=== PATIENT | female | born 1985 | race Caucasian/White ===

== ENCOUNTER 2016-10-31 21:21 | Emergency (ER) | payer BC, MEDICAID ==
[~2016-10-31] VITALS: Ht 162.6 cm; Wt 75.0 kg
[~2016-10-31 21:21] MED LIST: ALBU6.7H INH; BUSP15TA PO; GABA600T PO; LITH300T3 PO; PRED50 PO; ZOLO100T PO
[2016-10-31 21:42] VITALS: BP 94/60; PULSE 55; RESP 18; TEMP 97.7; O2SAT 99
--- NOTE | 2016-10-31 22:03 | PD ---
HPI . needs gabapentin refill Chief Complaint: needs gabapentin refill Time Seen by Provider: 21:58 Travel History International Travel<30 days: No Contact w/Intl Traveler<30days: No Traveled to known affect area: No History of Present Illness HPI 31-year-old female with a psychiatric history here with request for gabapentin refill. Patient was out of town and didn't realize that she Mr. Aristides Serrano appointment. Now she is requesting refill on gabapentin. She has no complaints. She tells me she is going to try to go back later on this week. PFSH Past Medical History Hx Anticoagulant Therapy: No ADHD: Yes Arthritis: No Asthma: Yes Bipolar Disorder: Yes Anxiety: Yes Depression: Yes Cancer: No Cardiovascular Problems: No Chemotherapy: No Cerebrovascular Accident: No Diabetes: No Diminished Hearing: No Endocrine: No GERD: Yes Genitourinary: No Hepatitis: Yes (HEP C) Immune Disorder: No Musculoskeletal: No Neurologic: Yes (MIGRAINE HEADHACHE) Psychiatric: Yes (BIPOLAR D/O) Reproductive: No Respiratory: Yes (ASTHMA) Migraines: Yes Pneumonia: Yes (HX OF) Seizures: Yes Sleep Apnea: No : 4 Para: 1 Miscarriage: 1 : 2 Ovarian Cysts: Yes (STATES LEFT OVARIAN CYST RUPTURED) Dilation and Curettage (D&C): Yes Past Surgical History Abdominal Surgery: No Cardiac Surgery: No Ear Surgery: No Endocrine Surgery: No Eye Surgery: No Genitourinary Surgery: No Gynecologic Surgery: Yes Hysterectomy: No Oral Surgery: No Thoracic Surgery: No Family History Family Hypercholesterolemia: Yes Social History Alcohol Use: No Tobacco Use: Yes (10 cigarettes/day) Substance Use: No Allergies-Medications (Allergen,Severity, Reaction): Coded Allergies: No Known Allergies (Verified , 10/31/16) Reported Meds & Prescriptions Reported Meds & Active Scripts Active Gabapentin 300 Mg Cap 300 Mg PO TID Gabapentin 600 Mg Tab 600 Mg PO BID Proventil Hfa 6.7 GM Inh (Albuterol Sulfate) 90 Mcg/Act Aer 2 Puff INH Q4-6H PRN Reported Suboxone Sublingual Film (Buprenorphine-Naloxone Sublingual Film) 8-2 Mg Film 1 Film SL BID Unique ID number required: Zoloft (Sertraline HCl) 100 Mg Tab 100 Mg PO DAILY Buspirone (Buspirone HCl) 15 Mg Tab 15 Mg PO TID Gabapentin 600 Mg Tab 900 Mg PO HS [place] Carbonate 300 Mg Tab 600 Mg PO HS Review of Systems General / Constitutional: No: Fever Eyes: No: Visual changes HENT: No: Headaches Cardiovascular: No: Chest Pain or Discomfort Respiratory: No: Shortness of Breath Gastrointestinal: No: Abdominal Pain Genitourinary: No: Dysuria Musculoskeletal: No: Pain Skin: No Rash Neurologic: No: Weakness Psychiatric: No: Depression Endocrine: No: Polydipsia Hematologic/Lymphatic: No: Easy Bruising Physical Exam Narrative GENERAL: AAO x 3, no acute distress, Well-nourished, well-developed patient. SKIN: Warm and dry. No visible rashes or bruising. HEAD: Normocephalic and atraumatic. EYES: No scleral icterus. No injection or drainage. ENT: No nasal drainage noted. Airway patent. NECK: Supple, trachea midline. No JVD. CARDIOVASCULAR: Regular rate and rhythm without murmurs, gallops, or rubs. RESPIRATORY: Breath sounds equal bilaterally. No accessory muscle use. No rhonchi or rales. GASTROINTESTINAL: Abdomen soft, non-tender, nondistended. EXTREMITIES: No cyanosis or edema. BACK: Nontender without obvious deformity. No CVA tenderness. PSYCH: AAO x 3, normal affect. Data Data Last Documented VS Vital Signs Date Time Temp Pulse Resp B/P Pulse Ox O2 Delivery O2 Flow Rate FiO2 10/31/16 21:42 97.7 55 18 94/60 99 MDM Medical Decision Making Medical Screen Exam Complete: Yes Emergency Medical Condition: Yes Medical Record Reviewed: Yes Differential Diagnosis medication refill, bipolar disorder Narrative Course 31-year-old female with a psychiatric history here with request for gabapentin refill. Patient was out of town and didn't realize that she MrStacia Serrano appointment. Now she is requesting refill on gabapentin. She has no complaints. She tells me she is going to try to go back later on this week. Patient seen and examined. Exam is unremarkable. Refill for gabapentin will be given for 10 day supply. Will need to follow up with Aristides Serrano for further refills. Patient verbalized understanding of instructions, questions were answered, and thanked me for their care. I advised them if their condition worsens, please return to the nearest emergency room for further care. Diagnosis Primary Impression: Medication refill Additional Instructions: Please return to emergency department if your symptoms return or worsen. Follow up with your primary care provider. Take medications as prescribed. Scripts Gabapentin 300 Mg [id number] Mg PO TID #30 CAP Ref 0 Prov:Mando Chery MD 10/31/16 Disposition: 01 DISCHARGE HOME Condition: Stable Esther Bailey Oct 31, 2016 22:03
[2016-10-31] MEDS ORDERED: SUBO8MIS SL (22:05)
[2016-10-31] MEDS ORDERED: GABA300C5 PO (22:09)
== END 2016-10-31 22:15 | disposition home or self-care (01) ==
LOC: PHEFT 21:21
DX: F31.9 Bipolar disorder, unspecified (principal); F17.210 Nicotine dependence, cigarettes, uncomplicated; Z76.0 Encounter for issue of repeat prescription
CPT/HCPCS: 99281

== ENCOUNTER 2016-11-07 20:45 | Emergency (ER) | payer BC ==
[~2016-11-07 20:45] MED LIST changes: +GABA300C5 PO; -PRED50 PO; +SUBO8MIS SL
[2016-11-07 20:47] VITALS: BP 132/61; PULSE 62; RESP 16; TEMP 98.4; O2SAT 99
[2016-11-08] MEDS ORDERED: GABA300C5 PO (18:39)
== END 2016-11-07 23:34 | disposition left against medical advice (07) ==
LOC: NED 20:45
DX: Z76.89 Persons encountering health services in other specified circumstances (principal)
CPT/HCPCS: 99281

== ENCOUNTER 2016-11-08 16:48 | Emergency (ER) | payer BC ==
[~2016-11-08] VITALS: Ht 162.6 cm; Wt 76.3 kg
[2016-11-08 16:50] VITALS: BP 122/71; PULSE 63; RESP 16; TEMP 98.4; O2SAT 97
--- NOTE | 2016-11-08 18:38 | PD ---
HPI Chief Complaint: Medication Refill Request Time Seen by Provider: 18:35 Travel History International Travel<30 days: No Contact w/Intl Traveler<30days: No Traveled to known affect area: No History of Present Illness HPI 31-year-old female with PMH of bipolar, anxiety and depression presents to the ED for medication refill. The patient states that she missed her appointment at [facility] and has been going every morning in an attempt to have her medications refilled but has been unsuccessful. She states that she does not have insurance or primary care provider. She states that she was given a short- term supply by her last provider that she saw in this ED. Review of the record reveals she was seen in this ED 10/31 and prescribed 10 days worth of gabapentin. She states that she takes this medication to treat bipolar. She states that without the medication she feels "like crap." She denies physical complaints on presentation. PFSH Past Medical History Hx Anticoagulant Therapy: No ADHD: Yes Arthritis: No Asthma: Yes Bipolar Disorder: Yes Anxiety: Yes Depression: Yes Cancer: No Cardiovascular Problems: No Chemotherapy: No Cerebrovascular Accident: No Diabetes: No Diminished Hearing: No Endocrine: No GERD: Yes Genitourinary: No Hepatitis: Yes (C) Immune Disorder: No Musculoskeletal: No Neurologic: Yes (Migraines ) Psychiatric: Yes (BIPOLAR D/O) Reproductive: No Respiratory: Yes (ASTHMA) Migraines: Yes Pneumonia: Yes Seizures: Yes Sleep Apnea: No ?: Not : 4 Para: 1 Miscarriage: 1 : 2 Ovarian Cysts: Yes (Lt. ovarian cyst ruptured ) Dilation and Curettage (D&C): Yes Past Surgical History Abdominal Surgery: No Cardiac Surgery: No Ear Surgery: No Endocrine Surgery: No Eye Surgery: No Genitourinary Surgery: No Gynecologic Surgery: Yes Hysterectomy: No Oral Surgery: No Thoracic Surgery: No Family History Family Hypercholesterolemia: Yes Social History Alcohol Use: No Tobacco Use: Yes (1/2 PPD) Substance Use: Yes (Marijuana occ.) Allergies-Medications (Allergen,Severity, Reaction): Coded Allergies: No Known Allergies (Verified , 11/08/16) Reported Meds & Prescriptions Reported Meds & Active Scripts Active Gabapentin 300 Mg Cap 300 Mg PO TID Gabapentin 300 Mg Cap 300 Mg PO TID Gabapentin 600 Mg Tab 600 Mg PO BID Proventil Hfa 6.7 GM Inh (Albuterol Sulfate) 90 Mcg/Act Aer 2 Puff INH Q4-6H PRN Reported Suboxone Sublingual Film (Buprenorphine-Naloxone Sublingual Film) 8-2 Mg Film 1 Film SL BID Unique ID number required: Zoloft (Sertraline HCl) 100 Mg Tab 100 Mg PO DAILY Buspirone (Buspirone HCl) 15 Mg Tab 15 Mg PO TID Gabapentin 600 Mg Tab 900 Mg PO HS [place] Carbonate 300 Mg Tab 600 Mg PO HS Review of Systems Except as stated in HPI: all other systems reviewed are Neg Physical Exam Narrative GENERAL: Well-nourished, well-developed tearful white female in no acute distress. SKIN: Focused skin assessment warm/dry. HEAD: Normocephalic. EYES: No scleral icterus. No injection or drainage. NECK: Supple, trachea midline. No JVD or lymphadenopathy. CARDIOVASCULAR: Regular rate and rhythm without murmurs, gallops, or rubs. RESPIRATORY: Breath sounds equal bilaterally. No accessory muscle use. GASTROINTESTINAL: Abdomen round, nondistended. MUSCULOSKELETAL: No cyanosis, or edema. The patient is ambulatory and moves extremities spontaneously. BACK: No obvious deformity. Data Data Last Documented VS Vital Signs Date Time Temp Pulse Resp B/P Pulse Ox O2 Delivery O2 Flow Rate FiO2 11/08/16 16:50 98.4 63 16 122/71 97 MDM Medical Decision Making Medical Screen Exam Complete: Yes Emergency Medical Condition: Yes Differential Diagnosis medication refill versus bipolar disorder versus malingering versus other Narrative Course 31-year-old female with PMH of bipolar, anxiety and depression presents to the ED for medication refill. The patient states that she missed her appointment at [facility] and has been going every morning in an attempt to have her medications refilled but has been unsuccessful. She states that she does not have insurance or primary care provider. She states that she was given a short- term supply by her last provider that she saw in this ED. Review of the record reveals she was seen in this ED 10/31 and prescribed 10 days worth of gabapentin. She states that she takes this medication to treat bipolar. She states that without the medication she feels "like crap." She denies physical complaints on presentation. Vitals reviewed. Physical exam is unremarkable. I had registration verified the patient does indeed have insurance. I notified the patient that she does have insurance and should establish a primary care to avoid further abuse of the ED. I provided her with #60 300 mg gabapentin. I informed her that medication I prescribed at the discretion of the provider and she may not be able to acquire refills from the emergency department in the future. She indicated understanding of her discharge instructions and is agreeable to plan of care. The patient is stable and discharged home. Diagnosis Primary Impression: Medication refill Referrals: Primary Care Physician [facility] Additional Instructions: Take medication as prescribed. Establish care with a PCP to avoid further abuse of the ED. Follow up with Aristides Cox. Turn to the ED for any urgent or emergent medical condition. Med/Other Pt SpecificInfo: Prescription(s) given Scripts Gabapentin 300 Mg [id number] Mg PO TID #60 CAP Ref 0 Prov:Yong Martinez MD 11/08/16 Disposition: 01 DISCHARGE HOME Condition: Stable Zahira Marshall Nov 08, 2016 18:38
[2016-11-08] MEDS ORDERED: GABA300C5 PO (18:39)
== END 2016-11-08 18:48 | disposition home or self-care (01) ==
LOC: PHEFT 16:48
DX: Z76.0 Encounter for issue of repeat prescription (principal); F31.9 Bipolar disorder, unspecified; F41.9 Anxiety disorder, unspecified; K21.9 Gastro-esophageal reflux disease without esophagitis; F90.9 Attention-deficit hyperactivity disorder, unspecified type; J45.909 Unspecified asthma, uncomplicated
CPT/HCPCS: 99281

== ENCOUNTER 2017-02-20 11:01 | Emergency (ER) | payer BC, OTHER ==
[~2017-02-20] VITALS: Ht 162.6 cm; Wt 68.0 kg
[2017-02-20 11:03] VITALS: BP 125/78; PULSE 77; RESP 15; TEMP 98.2; O2SAT 98
--- NOTE | 2017-02-20 11:38 | PD ---
HPI . here for gabapentin refill Chief Complaint: Medication Refill Request Time Seen by Provider: 11:38 Travel History International Travel<30 days: No Contact w/Intl Traveler<30days: No Traveled to known affect area: No History of Present Illness HPI 31-year-old female here requesting a refill on gabapentin. She tells me that [facility] here as they cannot get her in for the next few days. She is requesting a short supply of gabapentin. She takes 300 mg 2 tablets in the morning and 3 tablets in the evening. She has to empty bottle here with her. She has no specific complaints. PFSH Past Medical History Hx Anticoagulant Therapy: No ADHD: Yes Arthritis: No Asthma: Yes Bipolar Disorder: Yes Anxiety: Yes Depression: Yes Cancer: No Cardiovascular Problems: No Chemotherapy: No Cerebrovascular Accident: No Diabetes: No Diminished Hearing: No Endocrine: No GERD: Yes Genitourinary: No Hepatitis: Yes (C) Immune Disorder: No Musculoskeletal: No Neurologic: Yes (Migraines ) Psychiatric: Yes (BIPOLAR D/O) Reproductive: No Respiratory: Yes (ASTHMA) Migraines: Yes Pneumonia: Yes Seizures: Yes Sleep Apnea: No ?: Unknown LMP: 2 MONTHS AGO : 4 Para: 1 Miscarriage: 1 : 2 Ovarian Cysts: Yes (Lt. ovarian cyst ruptured ) Dilation and Curettage (D&C): Yes Past Surgical History Abdominal Surgery: No Cardiac Surgery: No Ear Surgery: No Endocrine Surgery: No Eye Surgery: No Genitourinary Surgery: No Gynecologic Surgery: Yes Hysterectomy: No Oral Surgery: No Thoracic Surgery: No Family History Family Hypercholesterolemia: Yes Social History Alcohol Use: No Tobacco Use: Yes (1/2 PPD) Substance Use: Yes (Marijuana occ.) Allergies-Medications (Allergen,Severity, Reaction): Coded Allergies: No Known Allergies (Verified , 11/08/16) Reported Meds & Prescriptions Reported Meds & Active Scripts Active Gabapentin 300 Mg Cap 300 Mg PO DIRECTED 2 tablet in am 3 tablet at bedtime Gabapentin 300 Mg Cap 300 Mg PO TID Gabapentin 300 Mg Cap 300 Mg PO TID Gabapentin 600 Mg Tab 600 Mg PO BID Proventil Hfa 6.7 GM Inh (Albuterol Sulfate) 90 Mcg/Act Aer 2 Puff INH Q4-6H PRN Reported Suboxone Sublingual Film (Buprenorphine-Naloxone Sublingual Film) 8-2 Mg Film 1 Film SL BID Unique ID number required: Zoloft (Sertraline HCl) 100 Mg Tab 100 Mg PO DAILY Buspirone (Buspirone HCl) 15 Mg Tab 15 Mg PO TID Gabapentin 600 Mg Tab 900 Mg PO HS [place] Carbonate 300 Mg Tab 600 Mg PO HS Review of Systems General / Constitutional: No: Fever Eyes: No: Visual changes HENT: No: Headaches Cardiovascular: No: Chest Pain or Discomfort Respiratory: No: Shortness of Breath Gastrointestinal: No: Abdominal Pain Genitourinary: No: Dysuria Musculoskeletal: No: Pain Skin: No Rash Neurologic: No: Weakness Psychiatric: No: Depression Endocrine: No: Polydipsia Hematologic/Lymphatic: No: Easy Bruising Physical Exam Narrative GENERAL: AAO x 3, no acute distress, Well-nourished, well-developed patient. SKIN: Warm and dry. No visible rashes or bruising. HEAD: Normocephalic and atraumatic. EYES: No scleral icterus. No injection or drainage. ENT: No nasal drainage noted. Mucous membranes pink. Airway patent. NECK: Supple, trachea midline. No JVD. CARDIOVASCULAR: Regular rate and rhythm without murmurs, gallops, or rubs. RESPIRATORY: Breath sounds equal bilaterally. GASTROINTESTINAL: visual inspection normal EXTREMITIES: No cyanosis or edema. BACK: No obvious deformity. NEURO: CN II-12 intact, PSYCH: AAO x 3, normal affect. Data Data Last Documented VS Vital Signs Date Time Temp Pulse Resp B/P Pulse Ox O2 Delivery O2 Flow Rate FiO2 02/20/17 11:03 98.2 77 15 125/78 98 MDM Medical Decision Making Medical Screen Exam Complete: Yes Emergency Medical Condition: Yes Medical Record Reviewed: Yes Differential Diagnosis medical refills, psychiatric history, bipolar disorder, Narrative Course 31 yr old female here requesting refills. I explained to her that she will need to see her PCP or psych for further refills. She thanked me for the few days worth of medication I provided. Diagnosis Primary Impression: Medication refill Patient Instructions: General Instructions Additional Instructions: You will need to follow up with your primary care provider or psychiatric Center for further refills on this medication. I have provided you with a three-day supply. Med/Other Pt SpecificInfo: Prescription(s) given Scripts Gabapentin 300 Mg [id number] Mg PO DIRECTED #15 CAP Ref 0 2 tablet in am 3 tablet at bedtime Prov:Shravan Saunders MD 02/20/17 Disposition: 01 DISCHARGE HOME Condition: Stable Esther Bailey Feb 20, 2017 11:38
[2017-02-20] MEDS ORDERED: GABA300C5 PO (11:41)
== END 2017-02-20 12:58 | disposition home or self-care (01) ==
LOC: NEPK 11:01
DX: F31.9 Bipolar disorder, unspecified (principal); Z76.0 Encounter for issue of repeat prescription
CPT/HCPCS: 99281

== ENCOUNTER 2017-03-21 23:29 | Emergency (ER) | payer OTHER ==
[~2017-03-21] VITALS: Ht 162.6 cm; Wt 69.0 kg
[2017-03-21 23:36] VITALS: BP 116/61; PULSE 82; RESP 14; TEMP 99.5; O2SAT 98
--- NOTE | 2017-03-21 23:39 | PD ---
HPI Chief Complaint: OD Time Seen by Provider: 23:32 Travel History International Travel<30 days: No Contact w/Intl Traveler<30days: No Traveled to known affect area: No History of Present Illness HPI EMS CALL DUE TO NOT BREATHING WELL, FOUND ON YARD IN FRONT OF BOYFRIENDS HOUSE, WITH PINPOINT PUPILS, SHALLOW RESPIRATIONS AND PULSE OX IN 50'S, GIVEN NARCAN IM , GOT AGITATED, NOW CALMER AND HOLDING HER OWN, BREATHING AND ANSWERING QUESTIONS APPROPRIATELY. PATIENT STATED SHE USED HEROIN TODAY. PFSH Past Medical History Hx Anticoagulant Therapy: No ADHD: Yes Arthritis: No Asthma: Yes Bipolar Disorder: Yes Anxiety: Yes Depression: Yes Cancer: No Cardiovascular Problems: No Chemotherapy: No Cerebrovascular Accident: No Diabetes: No Diminished Hearing: No Endocrine: No GERD: Yes Genitourinary: No Hepatitis: Yes (C) Immune Disorder: No Musculoskeletal: No Neurologic: Yes (Migraines ) Psychiatric: Yes (BIPOLAR D/O) Reproductive: No Respiratory: Yes (ASTHMA) Migraines: Yes Pneumonia: Yes Seizures: Yes Sleep Apnea: No : 4 Para: 1 Miscarriage: 1 : 2 Ovarian Cysts: Yes (Lt. ovarian cyst ruptured ) Dilation and Curettage (D&C): Yes Past Surgical History Abdominal Surgery: No Cardiac Surgery: No Ear Surgery: No Endocrine Surgery: No Eye Surgery: No Genitourinary Surgery: No Gynecologic Surgery: Yes Hysterectomy: No Oral Surgery: No Thoracic Surgery: No Family History Family Hypercholesterolemia: Yes Social History Alcohol Use: No Tobacco Use: Yes (1/2 PPD) Substance Use: Yes (Marijuana occ.) Allergies-Medications (Allergen,Severity, Reaction): Coded Allergies: No Known Allergies (Verified , 03/22/17) Reported Meds & Prescriptions Reported Meds & Active Scripts Active Gabapentin 300 Mg Cap 300 Mg PO DIRECTED 2 tablet in am 3 tablet at bedtime Gabapentin 300 Mg Cap 300 Mg PO TID Gabapentin 300 Mg Cap 300 Mg PO TID Gabapentin 600 Mg Tab 600 Mg PO BID Proventil Hfa 6.7 GM Inh (Albuterol Sulfate) 90 Mcg/Act Aer 2 Puff INH Q4-6H PRN Reported Suboxone Sublingual Film (Buprenorphine-Naloxone Sublingual Film) 8-2 Mg Film 1 Film SL BID Unique ID number required: Zoloft (Sertraline HCl) 100 Mg Tab 100 Mg PO DAILY Buspirone (Buspirone HCl) 15 Mg Tab 15 Mg PO TID Gabapentin 600 Mg Tab 900 Mg PO HS [place] Carbonate 300 Mg Tab 600 Mg PO HS Review of Systems ROS Limitations: Unresponsive Except as stated in HPI: all other systems reviewed are Neg Physical Exam Narrative GENERAL: SKIN: Warm and dry. MULTIPLE TRACK AHUJA THROUGHOUT BODY, NO AREA OF CELLULITIS HEAD: Atraumatic. Normocephalic. EYES: Pupils equal and round. No scleral icterus. No injection or drainage. ENT: No nasal bleeding or discharge. Mucous membranes pink and moist. NECK: Trachea midline. No JVD. CARDIOVASCULAR: Regular rate and rhythm. RESPIRATORY: No accessory muscle use. Clear to auscultation. Breath sounds equal bilaterally. GASTROINTESTINAL: Abdomen soft, non-tender, nondistended. Hepatic and splenic margins not palpable. MUSCULOSKELETAL: Extremities without clubbing, cyanosis, or edema. No obvious deformities. NEUROLOGICAL: Awake and alert. No obvious cranial nerve deficits. Motor grossly within normal limits. Five out of 5 muscle strength in the arms and legs. Normal speech. PSYCHIATRIC: Appropriate mood and affect; insight and judgment normal. Data Data Last Documented VS Vital Signs Date Time Temp Pulse Resp B/P Pulse Ox O2 Delivery O2 Flow Rate FiO2 03/21/17 23:36 99.5 82 14 116/61 98 Orders Electrocardiogram (03/21/17 23:32) Chest, Single Ap (03/21/17 23:32) Orthostatic Vital Signs (03/21/17 23:32) Blood Glucose (03/21/17 23:32) Ed Urine Pregnancytest Poc (03/21/17 23:32) Drug Screen, Random Urine (03/21/17 23:32) [facility] Medical Decision Making Medical Screen Exam Complete: Yes Emergency Medical Condition: Yes Medical Record Reviewed: Yes Interpretation(s) NSR 81, NO STEMI PATTERN BUT NONSPEC STT CHANGES NOTED Differential Diagnosis PREG RELATED V DEHYDRATION V HYPOGLYCEMIA V TOX RELATED Narrative Course EKG WNL, NO HYPOGLYCEMIA, NORMAL ORTHOSTATICS, AND NEG . PATIENT IS ABLE TO AMBULATE ON OWN AND IS EASILY AROUSABLE. AFTER 3 HRS OF OBSERVATION, PT HAS REMAINED STABLE AND WITHOUT ADDITIONAL NEED TO FURTHER ADMINISTER NARCAN. VSS. Diagnosis Primary Impression: OPIATE OVERDOSE S/P NARCAN Patient Instructions: General Instructions, Opioid Overdose (ED) Disposition: 01 DISCHARGE HOME Condition: Stable Juan Paul MD Mar 21, 2017 23:39
--- NOTE | 2017-03-22 00:12 | RADRPT ---
EXAM DATE/TIME: 03/21/2017 23:45 [facility] COMPARISON: No previous studies available for comparison. INDICATIONS : Shortness of breath. MEDICAL HISTORY : None. SURGICAL HISTORY : None. ENCOUNTER: Initial ACUITY: 1 day PAIN SCORE: 0/10 LOCATION: Bilateral chest FINDINGS: A single view of the chest demonstrates the lungs to be symmetrically aerated without evidence of mas s, infiltrate or effusion. No evidence of pneumothorax. The cardiomediastinal contours are unremark able. Osseous structures are intact. CONCLUSION: The lungs are clear. Judd Busch MD on March 22, 2017 at 0:10 Board Certified Radiologist. This report was verified electronically.
[2017-03-22 03:49] VITALS: BP 120/70; PULSE 86; RESP 16; O2SAT 95
--- NOTE | 2017-03-23 08:35 | EKG ---
Date Performed: 03/21/2017 Time Performed: 23:36:29 PTAGE: 31 years EKG: Sinus rhythm NONSPECIFIC T-WAVE ABNORMALITY BORDERLINE ECG NO PREVIOUS TRACING DOCTOR: Arnoldo Martinez Interpretating Date/Time 03/23/2017 08:34:23
== END 2017-03-22 04:04 | disposition home or self-care (01) ==
LOC: NEPC 23:29
DX: T40.1X1A Poisoning by heroin, accidental (unintentional), initial encounter (principal); R06.02 Shortness of breath; Y92.009 Unspecified place in unspecified non-institutional (private) residence as the place of occurrence of the external cause
CPT/HCPCS: 71010; 84703; 93005

== ENCOUNTER 2017-04-01 23:39 | Emergency (ER) | payer OTHER ==
[~2017-04-01] VITALS: Ht 162.6 cm; Wt 70.0 kg
[2017-04-01 23:47] VITALS: BP 169/84; PULSE 93; RESP 16; TEMP 98.5; O2SAT 97
[2017-04-01 23:53] VITALS: O2SAT 98
--- NOTE | 2017-04-01 23:54 | PD ---
HPI Chief Complaint: OD/ Ingestion Time Seen by Provider: 23:49 Travel History International Travel<30 days: No Contact w/Intl Traveler<30days: No Traveled to known affect area: No History of Present Illness HPI 31-year-old female with history of heroin abuse, has been seen by ambulance crew several times recently for opiate overdose, had an opiate overdose today, states she had taken heroin and was found unresponsive with pinpoint pupils, was given Narcan. She is currently awake. She denies any other issues. Modifying Factors: None Associated Signs & Symptoms: Opiate overdose Risk Factors: History of opiate abuse PFSH Past Medical History Hx Anticoagulant Therapy: No ADHD: Yes Arthritis: No Asthma: Yes Bipolar Disorder: Yes Anxiety: Yes Depression: Yes Cancer: No Cardiovascular Problems: No Chemotherapy: No Cerebrovascular Accident: No Diabetes: No Diminished Hearing: No Endocrine: No GERD: Yes Genitourinary: No Hepatitis: Yes (C) Immune Disorder: No Musculoskeletal: No Neurologic: Yes (Migraines ) Psychiatric: Yes (BIPOLAR D/O) Reproductive: No Respiratory: Yes (ASTHMA) Migraines: Yes Pneumonia: Yes Seizures: Yes Sleep Apnea: No ?: Not : 4 Para: 1 Miscarriage: 1 : 2 Ovarian Cysts: Yes (Lt. ovarian cyst ruptured ) Dilation and Curettage (D&C): Yes Past Surgical History Abdominal Surgery: No Cardiac Surgery: No Ear Surgery: No Endocrine Surgery: No Eye Surgery: No Genitourinary Surgery: No Gynecologic Surgery: Yes Hysterectomy: No Oral Surgery: No Thoracic Surgery: No Family History Family Hypercholesterolemia: Yes Social History Alcohol Use: No Tobacco Use: Yes Substance Use: Yes Allergies-Medications (Allergen,Severity, Reaction): Coded Allergies: No Known Allergies (Verified , 03/22/17) Reported Meds & Prescriptions Reported Meds & Active Scripts Active Gabapentin 300 Mg Cap 300 Mg PO TID Gabapentin 600 Mg Tab 600 Mg PO BID Proventil Hfa 6.7 GM Inh (Albuterol Sulfate) 90 Mcg/Act Aer 2 Puff INH Q4-6H PRN Reported Suboxone Sublingual Film (Buprenorphine-Naloxone Sublingual Film) 8-2 Mg Film 1 Film SL BID Unique ID number required: Zoloft (Sertraline HCl) 100 Mg Tab 100 Mg PO DAILY Buspirone (Buspirone HCl) 15 Mg Tab 15 Mg PO TID Gabapentin 600 Mg Tab 900 Mg PO HS [place] Carbonate 300 Mg Tab 600 Mg PO HS Review of Systems Except as stated in HPI: all other systems reviewed are Neg Physical Exam Narrative GENERAL: Well-developed young female patient currently in mild distress. Awake and oriented 3. SKIN: Focused skin assessment warm/dry. Track maya bilateral arms. HEAD: Atraumatic. Normocephalic. EYES: Pupils equal and round. No scleral icterus. No injection or drainage. ENT: No nasal bleeding or discharge. Mucous membranes pink and moist. NECK: Trachea midline. No JVD. Notable for needle maya on both EJ's. CARDIOVASCULAR: Regular rate and rhythm. No murmur appreciated. RESPIRATORY: No accessory muscle use. Clear to auscultation. Breath sounds equal bilaterally. GASTROINTESTINAL: Abdomen soft, non-tender, nondistended. Hepatic and splenic margins not palpable. MUSCULOSKELETAL: No obvious deformities. No clubbing. No cyanosis. No edema. NEUROLOGICAL: Awake and alert. No obvious cranial nerve deficits. Motor grossly within normal limits. Normal speech. PSYCHIATRIC: Appropriate mood and affect; insight and judgment normal. Data Data Last Documented VS Vital Signs Date Time Temp Pulse Resp B/P (MAP) Pulse Ox O2 Delivery O2 Flow Rate FiO2 04/02/17 04:00 80 16 120/70 (87) 99 Room Air 04/01/17 23:47 98.5 Orders Orders Complete Blood Count With Diff (04/01/17 23:49) Comprehensive Metabolic Panel (04/01/17 23:49) Iv Access Insert/Monitor (04/01/17 23:49) Ecg Monitoring (04/01/17 23:49) Oximetry (04/01/17 23:49) Sodium Chloride 0.9% Flush (Ns Flush) (04/02/17 00:00) Drug Screen, Random Urine (04/01/17 23:49) Alcohol (Ethanol) (04/01/17 23:49) Electrocardiogram (04/01/17 23:54) [place] (Li) (04/01/17 23:54) Salicylates (Aspirin) (04/01/17 23:55) Tylenol (Acetaminophen) (04/01/17 23:49) Labs Laboratory Tests Test 04/01/17 23:55 04/02/17 02:50 White Blood Count 5.5 TH/MM3 Red Blood Count 4.81 MIL/MM3 Hemoglobin 14.5 GM/DL Hematocrit 42.0 % Mean Corpuscular Volume 87.4 FL Mean Corpuscular Hemoglobin 30.2 PG Mean Corpuscular Hemoglobin Concent 34.5 % Red Cell Distribution Width 15.1 % Platelet Count 246 TH/MM3 Mean Platelet Volume 7.3 FL Neutrophils (%) (Auto) 67.9 % Lymphocytes (%) (Auto) 24.5 % Monocytes (%) (Auto) 6.9 % Eosinophils (%) (Auto) 0.4 % Basophils (%) (Auto) 0.3 % Neutrophils # (Auto) 3.7 TH/MM3 Lymphocytes # (Auto) 1.3 TH/MM3 Monocytes # (Auto) 0.4 TH/MM3 Eosinophils # (Auto) 0.0 TH/MM3 Basophils # (Auto) 0.0 TH/MM3 CBC Comment DIFF FINAL Differential Comment Blood Urea Nitrogen 4 MG/DL Creatinine 0.87 MG/DL Random Glucose 106 MG/DL Total Protein 8.1 GM/DL Albumin 4.0 GM/DL Calcium Level 8.7 MG/DL Alkaline Phosphatase 62 U/L Aspartate Amino Transf (AST/SGOT) 32 U/L Alanine Aminotransferase (ALT/SGPT) 42 U/L Total Bilirubin 0.7 MG/DL Sodium Level 143 MEQ/L Potassium Level 3.4 MEQ/L Chloride Level 104 MEQ/L Carbon Dioxide Level 29.5 MEQ/L Anion Gap 10 MEQ/L Estimat Glomerular Filtration Rate 76 ML/MIN Salicylates Level 2.3 MG/DL Acetaminophen Level LESS THAN 2.0 MCG/ML [place] Level 0.3 MEQ/L Ethyl Alcohol Level LESS THAN 3 MG/DL Urine Opiates Screen POS Urine Barbiturates Screen NEG Urine Amphetamines Screen POS Urine Benzodiazepines Screen NEG Urine Cocaine Screen POS Urine Cannabinoids Screen NEG [facility] Medical Decision Making Medical Screen Exam Complete: Yes Emergency Medical Condition: Yes Medical Record Reviewed: Yes Interpretation(s) EKG shows NSR, no ST elevation or depression, and no arrhythmias. No significant T-wave inversions. Laboratory Tests Test 04/01/17 23:55 Blood Urea Nitrogen 4 MG/DL (7-18) Potassium Level 3.4 MEQ/L (3.5-5.1) Estimat Glomerular Filtration Rate 76 ML/MIN (>89) Salicylates Level 2.3 MG/DL (2.8-20.0) Acetaminophen Level LESS THAN 2.0 MCG/ML [place] Level 0.3 MEQ/L (0.5-1.5) Differential Diagnosis Opiate overdose Narrative Course She is awake and alert with stable vital signs when she got to the ER after Narcan by EMS. Patient is observed in the ER for several hours. On reevaluation at 4:40 AM, patient is awake, alert, and oriented without any signs of intoxication. At this point, my plan would be to release her with follow-up to rehabilitation for her opiate issues. Patient states that she had been to [facility] for help with substance abuse and was released from there one and half weeks ago. She has talked to her counselor and they will be picking her up today. My plan would be to release her today with the counselor. Return for any worsening in symptoms as needed. The plan was discussed with her and she states understanding. In addition, I have discussed with her at length that if she continues down this path and tries to use heroin again, she may not survive next overdose. Diagnosis Primary Impression: Opiate overdose Disposition: 01 DISCHARGE HOME Condition: Stable Mikhail Garza MD Apr 01, 2017 23:54
[2017-04-02] MEDS ORDERED: SODIUM CHLORIDE 0.9% FLUSH 10 ML FLUSH IVF PRN
[2017-04-02 00:12] LABS: AUTOMATED NEUTROPHIL # 3.7 TH/MM3 (1.8-7.7); BASOPHIL % 0.3 % (0.0-2.0); EOSINOPHIL % 0.4 % (0.0-4.0); HEMO FLAGS DIFF FINAL; LYMPH % 24.5 % (9.0-44.0); LYMPHOCYTE # 1.3 TH/MM3 (1.0-4.8); MEAN CELL VOLUME 87.4 FL (80.0-100.0); MEAN CORPUSCULAR HEMOGLOBIN 30.2 PG (27.0-34.0); MEAN CORPUSCULAR HGB CONC 34.5 % (32.0-36.0); MONO % 6.9 % (0.0-8.0); NEUT % 67.9 % (16.0-70.0); PLATELET COUNT 246 TH/MM3 (150-450); RED BLOOD COUNT 4.81 MIL/MM3 (4.00-5.30); RED CELL DISTRIBUTION WIDTH 15.1 % (11.6-17.2); WHITE BLOOD COUNT 5.5 TH/MM3 (4.0-11.0)
[2017-04-02 00:36] LABS: ANION GAP 10 MEQ/L (5-15)
[2017-04-02 00:44] LABS: ACETAMINOPHEN LESS THAN 2.0 MCG/ML (10.0-30.0); ALCOHOL LESS THAN 3 MG/DL (0-5); ALKALINE PHOSPHATASE 62 U/L (45-117); ALT (GPT) 42 U/L (10-53); AST (GOT) 32 U/L (15-37); BICARBONATE 29.5 MEQ/L (21.0-32.0); BLOOD UREA NITROGEN 4 MG/DL (7-18); CHLORIDE 104 MEQ/L (98-107); GLOMERULAR FILTRATION RATE 76 ML/MIN (>89); POTASSIUM 3.4 MEQ/L (3.5-5.1); SODIUM (NA) 143 MEQ/L (136-145); TOTAL BILIRUBIN ADULT 0.7 MG/DL (0.2-1.0)
[2017-04-02 04:00] VITALS: BP 120/70; PULSE 80; RESP 16; O2SAT 99
--- NOTE | 2017-04-02 11:53 | EKG ---
Date Performed: 04/01/2017 Time Performed: 23:51:03 PTAGE: 31 years EKG: Sinus rhythm NORMAL ECG PREVIOUS TRACING : 03/21/2017 23.36 Compared to prior tracing no significant change DOCTOR: Angela Garcia Interpretating Date/Time 04/02/2017 11:52:36
== END 2017-04-02 05:10 | disposition home or self-care (01) ==
LOC: NEPC 23:39
DX: T40.1X1A Poisoning by heroin, accidental (unintentional), initial encounter (principal); Z72.0 Tobacco use; Z86.59 Personal history of other mental and behavioral disorders; Z87.09 Personal history of other diseases of the respiratory system; Z87.19 Personal history of other diseases of the digestive system; Z86.19 Personal history of other infectious and parasitic diseases; Z86.69 Personal history of other diseases of the nervous system and sense organs
CPT/HCPCS: 80053; 80178; 80307; 85025; 93005; 99284

== ENCOUNTER 2017-06-06 15:59 | Emergency (ER) | payer OTHER ==
[~2017-06-06] VITALS: Ht 162.6 cm; Wt 55.0 kg
[2017-06-06 16:00] VITALS: BP 128/88; PULSE 125; RESP 20; TEMP 98.4; O2SAT 97
--- NOTE | 2017-06-06 16:23 | PD ---
Physical Exam Date Seen by Provider: Jun 06, 2017 Time Seen by Provider: 16:21 Narrative 31-year-old right handed white female presents to the department with a abscess to her left forearm. Symptoms of present for the last 3 days. She is an IV drug abuser. No fever chills. Pain is mild to moderate. Patient also states that she been having some intermittent abdominal pain that she would like to be evaluated for. History of hepatitis C. Vital signs reviewed. Pt waiting for bed placement. Data Data Last Documented VS Vital Signs Date Time Temp Pulse Resp B/P (MAP) Pulse Ox O2 Delivery O2 Flow Rate FiO2 06/06/17 16:00 98.4 125 20 128/88 (101) 97 Room Air [facility] Medical Record Reviewed: No Supervised Visit with JERI: Daren Henson Jun 06, 2017 16:23
[2017-06-06] MEDS ORDERED: LIDOCAINE 1%/EPINEPHrine 1:100,000 SOLN 20 ML VIAL INFIL ONE (18:15)
[2017-06-06] MEDS ORDERED: BACT800T5 PO (18:52)
--- NOTE | 2017-06-06 19:02 | PD ---
HPI Chief Complaint: Skin Problem Time Seen by Provider: 17:39 Travel History International Travel<30 days: No Contact w/Intl Traveler<30days: No Traveled to known affect area: No History of Present Illness HPI 31-year-old female presents to the emergency room for evaluation of an abscess to her left forearm. Patient states it popped up when she woke up this morning. She admits to IV drug use. She injects heroin. Patient states last night she felt a little feverish and had some diarrhea but today she feels well. No chronic medical conditions or daily medications. She has history of MRSA. PFSH Past Medical History Hx Anticoagulant Therapy: No ADHD: Yes Arthritis: No Asthma: Yes Bipolar Disorder: Yes Anxiety: Yes Depression: Yes Cancer: No Cardiovascular Problems: No Chemotherapy: No Cerebrovascular Accident: No Diabetes: No Diminished Hearing: No Endocrine: No GERD: Yes Genitourinary: No Hepatitis: Yes (C) Immune Disorder: No Musculoskeletal: No Neurologic: Yes (Migraines ) Psychiatric: Yes (BIPOLAR D/O) Reproductive: No Respiratory: Yes (ASTHMA) Migraines: Yes Pneumonia: Yes Seizures: Yes Sleep Apnea: No : 4 Para: 1 Miscarriage: 1 : 2 Ovarian Cysts: Yes (Lt. ovarian cyst ruptured ) Dilation and Curettage (D&C): Yes Past Surgical History Abdominal Surgery: No Cardiac Surgery: No Ear Surgery: No Endocrine Surgery: No Eye Surgery: No Genitourinary Surgery: No Gynecologic Surgery: Yes Hysterectomy: No Oral Surgery: No Thoracic Surgery: No Family History Family Hypercholesterolemia: Yes Social History Alcohol Use: No Tobacco Use: Yes Substance Use: Yes Allergies-Medications (Allergen,Severity, Reaction): Coded Allergies: No Known Allergies (Verified Adverse Reaction, Unknown, 06/06/17) Reported Meds & Prescriptions Reported Meds & Active Scripts Active Bactrim DS (Sulfamethoxazole-Trimethoprim) 800-160 Mg Tab 1 Tab PO BID Gabapentin 300 Mg Cap 300 Mg PO TID Gabapentin 600 Mg Tab 600 Mg PO BID Proventil Hfa 6.7 GM Inh (Albuterol Sulfate) 90 Mcg/Act Aer 2 Puff INH Q4-6H PRN Reported Suboxone Sublingual Film (Buprenorphine-Naloxone Sublingual Film) 8-2 Mg Film 1 Film SL BID Unique ID number required: Zoloft (Sertraline HCl) 100 Mg Tab 100 Mg PO DAILY Buspirone (Buspirone HCl) 15 Mg Tab 15 Mg PO TID Gabapentin 600 Mg Tab [address] HS [place] Carbonate 300 Mg Tab 600 Mg PO HS Review of Systems Except as stated in HPI: all other systems reviewed are Neg Physical Exam Narrative GENERAL: Well-nourished, well-developed female in no acute distress. Afebrile. Ambulatory. SKIN: Focused skin assessment warm/dry. There is an indurated area in the left volar forearm which measures about 3 cm in diameter. It is fluctuant but there is no pointing or drainage. There is a zone of inflammation around it but no lymphangitis. HEAD: Normocephalic. EYES: No scleral icterus. No injection or drainage. NECK: Supple, trachea midline. No JVD or lymphadenopathy. CARDIOVASCULAR: Regular rate and rhythm without murmurs, gallops, or rubs. RESPIRATORY: Breath sounds equal bilaterally. No accessory muscle use. PSYCHIATRIC: No delusional thought processes. No hallucinations. Data Data Last Documented VS Vital Signs Date Time Temp Pulse Resp B/P (MAP) Pulse Ox O2 Delivery O2 Flow Rate FiO2 06/06/17 16:00 98.4 125 20 128/88 (101) 97 Room Air Orders Orders Complete Blood Count With Diff (06/06/17 18:04) Basic Metabolic Panel (Bmp) (06/06/17 18:04) Lidocai-Epi 1%-1:100,000 Inj (Xylocaine- (06/06/17 18:15) MDM Medical Decision Making Medical Screen Exam Complete: Yes Emergency Medical Condition: Yes Medical Record Reviewed: Yes Differential Diagnosis Abscess, cellulitis, MRSA Narrative Course 31-year-old female presents to the emergency room for evaluation of left forearm abscess noticed this morning. She uses IV heroin. Denies fever, chills , nausea, and vomiting. I initially ordered CBC and BMP under protocol but patient's abscess is very contained. Because she was an IV drug user, access was difficult to obtain. No evidence of sepsis or systemic signs of infection. Vital signs stable. No indication for blood work at this time. Patient will be treated empirically with Bactrim and told to follow-up with [facility] or return for worsening symptoms. She was also given information for [facility] Serrano. Told to return for worsening symptoms. She understands and agrees to plan. Procedures Procedure Narrative INCISION AND DRAINAGE OF ABSCESS: The area was prepped and was sterilely draped. A subcutaneous wheal of 1% lidocaine with epinephrine with a total number 2 mL was used to anesthetize the area properly. A number 11 scalpel was used to make a 1 cm incision across the area of the abscess. The abscess was drained, complex loculations were broken down, and irrigated with normal saline. Cultures were obtained. Sterile dressing applied. Diagnosis Primary Impression: Abscess of forearm, left Referrals: [facility] (Out patient) [facility] Additional Instructions: Rest and drink plenty of fluids. Take Bactrim as directed, until gone. Follow up with a primary care physician. Return to emergency room for worsening symptoms, as discussed. Med/Other Pt SpecificInfo: Prescription(s) given Scripts Sulfamethoxazole-Trimethoprim (Bactrim DS) 800-160 Mg Tab 1 TAB PO BID for Infection, #20 TAB 0 Refills Prov: Juan Paul MD 06/06/17 Disposition: 01 DISCHARGE HOME Condition: Stable Sheyla Nguyen Jun 06, 2017 19:02
[2017-06-06 19:08] VITALS: BP 130/88
== END 2017-06-06 19:25 | disposition home or self-care (01) ==
LOC: NEPD 15:59
DX: L02.414 Cutaneous abscess of left upper limb (principal); Z72.0 Tobacco use
CPT/HCPCS: 10060

== ENCOUNTER 2017-06-07 19:53 | Observation (INO) | payer SELFPAY ==
[~2017-06-07] VITALS: Ht 160 cm; Wt 65.0 kg
[~2017-06-07 19:53] MED LIST changes: +BACT800T5 PO
[2017-06-07 20:01] VITALS: BP 164/77; RESP 18
[2017-06-07 20:02] VITALS: PULSE 112; TEMP 98.5
[2017-06-07] MEDS ORDERED: SODIUM CHLOR 0.9% 1000 ML INJ 1,000 ML IV SCH ×2 (20:05)
[2017-06-07] MEDS ORDERED: SODIUM CHLORIDE 0.9% FLUSH 10 ML FLUSH IV FLUSH PRN ×2 (20:15)
[2017-06-07] MEDS ORDERED: ONDANSETRON HCL 4 MG/2 ML VIAL IVP ONE ×2 (20:15)
[2017-06-07] MEDS ORDERED: MORPHINE SULFATE 4 MG/ML INJ IV PUSH ONE ×2 (20:15)
--- NOTE | 2017-06-07 20:15 | PD ---
HPI Chief Complaint: Abdominal Pain Time Seen by Provider: 20:05 Travel History International Travel<30 days: No Contact w/Intl Traveler<30days: No Traveled to known affect area: No History of Present Illness HPI 31 year old female admitted IV heroin user presents to the emergency department by EMS transport for severe upper abdominal pain radiating to the right shoulder that has been constant since this morning. Last heroin use was this morning. Patient has been seen in the emergency department recently for I&D of an abscess to the left forearm and recently started on Bactrim patient denies nausea vomiting or diarrhea. Patient denies fever or chills. Patient is sexually active without condom use or control pills. Patient's last period that was normal for her was approximately 2 months ago and has had spotting intermittently in the interim. Patient is Ab1. Patient denies vaginal discharge. Patient denies previous sexually transmitted disease. Patient rates pain as 10 over 10 in intensity. Pain is worsened by deep inspiratory effort. Patient denies chest pain. Patient denies shortness of breath. No report of hemoptysis. Remote history of peptic ulcer disease. Patient denies NSAID use. No prior history of pancreatitis or cholecystitis. No history of gallstones. PFSH Past Medical History Narrative Medical Asthma ADHD bipolar disorder Ab1 IV para 1/drug abuse hepatitis C peptic ulcer disease migraines pneumonia seizure ovarian cyst D&C heroin use tobacco use; nursing notes reviewed Hx Anticoagulant Therapy: No ADHD: Yes Arthritis: No Asthma: Yes Bipolar Disorder: Yes Anxiety: Yes Depression: Yes Cancer: No Cardiovascular Problems: No Chemotherapy: No Cerebrovascular Accident: No Diabetes: No Diminished Hearing: No Endocrine: No GERD: Yes Genitourinary: No Hepatitis: Yes (C) Immune Disorder: No Musculoskeletal: No Neurologic: Yes (Migraines ) Psychiatric: Yes (BIPOLAR D/O) Reproductive: No Respiratory: Yes (ASTHMA) Integumentary: Yes (abscess left arm) Migraines: Yes Pneumonia: Yes Seizures: Yes Sleep Apnea: No Tetanus Vaccination: < 5 Years Influenza Vaccination: No ?: Unknown LMP: 10-20-17 : 3 Para: 2 Miscarriage: 1 : 2 Ovarian Cysts: Yes (Lt. ovarian cyst ruptured ) Dilation and Curettage (D&C): Yes Past Surgical History Surgical History: No Previous Surgery Abdominal Surgery: No Cardiac Surgery: No Ear Surgery: No Endocrine Surgery: No Eye Surgery: No Genitourinary Surgery: No Gynecologic Surgery: Yes Hysterectomy: No Oral Surgery: No Thoracic Surgery: No Family History Family Hypercholesterolemia: Yes Social History Alcohol Use: No Tobacco Use: Yes Substance Use: Yes (heroin today) Allergies-Medications (Allergen,Severity, Reaction): Coded Allergies: No Known Allergies (Verified Adverse Reaction, Unknown, 06/07/17) Reported Meds & Prescriptions Reported Meds & Active Scripts Active Bactrim DS (Sulfamethoxazole-Trimethoprim) 800-160 Mg Tab 1 Tab PO BID Proventil Hfa 6.7 GM Inh (Albuterol Sulfate) 90 Mcg/Act Aer 2 Puff INH Q4-6H PRN Review of Systems Except as stated in HPI: all other systems reviewed are Neg General / Constitutional: No: Fever, Chills HENT: No: Congestion Cardiovascular: No: Chest Pain or Discomfort Respiratory: No: Shortness of Breath Gastrointestinal: Positive: Nausea, Abdominal Pain, No: Vomiting, Diarrhea Genitourinary: Positive: Vaginal Bleeding, No: Dysuria, Flank Pain, Discharge Musculoskeletal: No: Myalgias, Arthralgias Skin: No Rash Neurologic: No: Weakness Psychiatric: Positive: Anxiety, Substance Abuse (spotting) Hematologic/Lymphatic: No: Easy Bruising ( hair 1) Physical Exam Narrative GENERAL: Well-developed well-nourished female in obvious discomfort no respiratory distress; GCS 15 SKIN: Warm and dry. HEAD: Normocephalic. EYES: No scleral icterus. No injection or drainage. NECK: Supple, trachea midline. No JVD or lymphadenopathy. CARDIOVASCULAR: Increased Regular rate and rhythm without murmurs, gallops, or rubs. RESPIRATORY: Breath sounds equal bilaterally. No accessory muscle use. GASTROINTESTINAL: Abdomen soft marked tenderness and voluntary guarding without rebound, nondistended. Pelvic exam: Normal external exam no induration erythema or lesions; speculum exam yellow purulent discharge from the cervical os os is closed no clots no tissue no blood; no adnexal mass or tenderness minimal cervical motion tenderness. MUSCULOSKELETAL: No cyanosis, or edema. BACK: Nontender without obvious deformity. No CVA tenderness. Data Data Last Documented VS Vital Signs Date Time Temp Pulse Resp B/P (MAP) Pulse Ox O2 Delivery O2 Flow Rate FiO2 06/07/17 22:50 96 Room Air 06/07/17 22:48 103 16 06/07/17 20:02 98.5 Orders Orders Complete Blood Count With Diff (06/07/17 20:05) Comprehensive Metabolic Panel (06/07/17 20:05) Lipase (06/07/17 20:05) Lactic Acid (06/07/17 20:05) Prothrombin Time / Inr (Pt) (06/07/17 20:05) Act Partial Throm Time (Ptt) (06/07/17 20:05) Urinalysis - C+S If Indicated (06/07/17 20:05) Ct Abd/Pel W Iv Contrast(Rout) (06/07/17 20:05) Iv Access Insert/Monitor (06/07/17 20:05) Ecg Monitoring (06/07/17 20:05) Oximetry (06/07/17 20:05) Ondansetron Inj (Zofran Inj) (06/07/17 20:15) Sodium Chlor 0.9% 1000 Ml Inj (Ns 1000 M (06/07/17 20:05) Sodium Chloride 0.9% Flush (Ns Flush) (06/07/17 20:15) Electrocardiogram (06/07/17 20:05) Chest, Single Ap (06/07/17 20:05) Ed Urine Pregnancytest Poc (06/07/17 20:05) Morphine Inj (Morphine Inj) (06/07/17 20:15) Drug Screen, Random Urine (06/07/17 20:05) Gc And Chlamydia Pcr (06/07/17 20:05) Wet Prep Profile (06/07/17 20:05) Cath For Specimen (06/07/17 20:05) Blood Culture (06/07/17 20:25) Sodium Chlor 0.9% 1000 Ml Inj (Ns 1000 M (06/07/17 20:30) Urine Culture (06/07/17 20:35) Hydromorphone Pf Inj (Dilaudid Pf Inj) (06/07/17 21:00) Ct Pulmonary Angiogram (06/07/17 ) Cefoxitin Inj (Mefoxin Inj) (06/07/17 21:30) Doxycycline Inj (Vibramycin Inj) (06/07/17 21:30) Iohexol 350 Inj (Omnipaque 350 Inj) (06/07/17 22:33) Us Abdomen Gallbladder (06/07/17 ) Admit Order (Ed Use Only) (06/08/17 ) Senior Clinical Data Coordinator / Telemetry [id number] (06/08/17 00:20) Diet Npo (06/08/17 Breakfast) Activity Oob With Assistance (06/08/17 00:20) Notify Dr: Other (06/08/17 00:20) Labs Laboratory Tests Test 06/07/17 20:20 06/07/17 20:35 06/07/17 21:20 White Blood Count 14.3 TH/MM3 Red Blood Count 4.39 MIL/MM3 Hemoglobin 12.0 GM/DL Hematocrit 36.4 % Mean Corpuscular Volume 82.9 FL Mean Corpuscular Hemoglobin 27.4 PG Mean Corpuscular Hemoglobin Concent 33.0 % Red Cell Distribution Width 14.1 % Platelet Count 402 TH/MM3 Mean Platelet Volume 6.6 FL Neutrophils (%) (Auto) 83.2 % Lymphocytes (%) (Auto) 9.9 % Monocytes (%) (Auto) 6.2 % Eosinophils (%) (Auto) 0.4 % Basophils (%) (Auto) 0.3 % Neutrophils # (Auto) 11.9 TH/MM3 Lymphocytes # (Auto) 1.4 TH/MM3 Monocytes # (Auto) 0.9 TH/MM3 Eosinophils # (Auto) 0.1 TH/MM3 Basophils # (Auto) 0.0 TH/MM3 CBC Comment DIFF FINAL Differential Comment Prothrombin Time 12.0 SEC Prothromb Time International Ratio 1.1 RATIO Activated Partial Thromboplast Time 30.9 SEC Blood Urea Nitrogen 10 MG/DL Creatinine 0.78 MG/DL Random Glucose 97 MG/DL Total Protein 8.4 GM/DL Albumin 3.2 GM/DL Calcium Level 9.0 MG/DL Alkaline Phosphatase 105 U/L Aspartate Amino Transf (AST/SGOT) 24 U/L Alanine Aminotransferase (ALT/SGPT) 31 U/L Total Bilirubin 0.7 MG/DL Sodium Level 128 MEQ/L Potassium Level 3.6 MEQ/L Chloride Level 92 MEQ/L Carbon Dioxide Level 27.3 MEQ/L Anion Gap 9 MEQ/L Estimat Glomerular Filtration Rate 86 ML/MIN Lactic Acid Level 1.9 mmol/L Lipase 56 U/L Urine Color YELLOW Urine Turbidity HAZY Urine pH 6.5 Urine Specific [place] 1.015 Urine Protein TRACE mg/dL Urine Glucose (UA) NEG mg/dL Urine Ketones NEG mg/dL Urine Occult Blood MOD Urine Nitrite NEG Urine Bilirubin NEG Urine Urobilinogen LESS THAN 2.0 MG/DL Urine Leukocyte Esterase LARGE Urine RBC 13 /hpf Urine WBC 158 /hpf Urine Squamous Epithelial Cells 5 /hpf Urine Amorphous Sediment RARE Urine Bacteria RARE /hpf Microscopic Urinalysis Comment CATH-CULTURE IND Urine Opiates Screen POS Urine Barbiturates Screen NEG Urine Amphetamines Screen POS Urine Benzodiazepines Screen NEG Urine Cocaine Screen POS Urine Cannabinoids Screen NEG Clue Cells (Wet Prep) NONE SEEN Vaginal Trichomonas (Wet Prep) NONE SEEN Vaginal Yeast (Wet Prep) NONE SEEN Chlamydia trachomatis DNA (PCR) NOT DETECTED Neisseria gonorrhoeae DNA (PCR) DETECTED MDM Medical Decision Making Medical Screen Exam Complete: Yes Emergency Medical Condition: Yes Medical Record Reviewed: Yes Interpretation(s) EKG: Sinus tachycardia rate 110 left atrial enlargement no ST elevation or injury pattern change noted no ectopy artifact is present at baseline [id number] hCG: Negative Chest x-ray: No subdiaphragmatic free air CBC & BMP Diagram 06/07/17 20:20 Total Protein 8.4 H, Albumin 3.2 L, Calcium Level 9.0, Alkaline Phosphatase 105 , Aspartate Amino Transf (AST/SGOT) 24, Alanine Aminotransferase (ALT/SGPT) 31, Total Bilirubin 0.7 Urine drug screen positive for opiates methamphetamine and cocaine Urinalysis positive for white blood cells small bacteria culture indicated CT abd/pel: CONCLUSION: 1. Abnormal nonspecific bowel gas pattern which could represent gastroenteritis or ileus. There is suboptimal visualization due to the lack of oral contrast and portal delineation of the bowel loops secondary to minimal mesenteric fat. The stomach and proximal duodenum are dilated and full of fluid. 2. Gallbladder is contracted. Lenny Elliott MD on June 07, 2017 at 22:40 Board Certified Radiologist. This report was verified electronically. CT pulmonary angiogram: o PE per reading radiologist Dr Elliott Differential Diagnosis Abdominal pain perforated viscus cholecystitis pancreatitis ectopic ovarian torsion tubo-ovarian abscess PID- Mugc-Rgdo-Ofrzpi PE endocarditis Narrative Course Patient placed on monitor and storage bin tender IV access obtained patient with marked pleuritic pain and complaint of shortness of breath and referred pain to the right scapula with upper abdominal pain; IV morphine 4 mg administered along with Zofran 4 mg IV and 1 L of normal saline Patient reassessed and incapable of laying supine for marked pain and shortness of breath; chest x-ray reveals no subdiaphragmatic free air; taikj-[id number] hCG is negative; CT abdomen and pelvis has been ordered in view of ongoing complaint of pleuritic pain will add CT pulmonary angiogram; additional pain medication Dilaudid 1 mg administered Patient resting more comfortably remains tachycardic able to perform pelvic exam which reveals purulent discharge at the cervical os but minimal cervical motion tenderness no adnexal mass or enlargement and no uterine enlargement Patient's pain controlled and patient is not ambulatory about the emergency department denying any abdominal pain It is now [address] poor and gram is negative for PE CT abdomen and pelvis is abnormal noting some air-fluid levels concerning for gastroenteritis versus ileus pattern gallbladder is contracted otherwise no acute findings identified; patient reexamined Sepsis Criteria SIRS Criteria (2 or more): Heart rate over 90, WBC > 53191, < 4000 or > 10% bands Sepsis Criteria (SIRS+source): Infect source susp/known (pid, uyi, ileus) Physician Communication Physician Communication call placed to [facility] Diagnosis Primary Impression: Ileus Additional Impressions: Hyponatremia Polysubstance abuse PID (acute pelvic inflammatory disease) UTI (urinary tract infection) Admitting Information Admitting Physician Requests: Observation Cristal Carey MD Jun 07, 2017 20:15
[2017-06-07] MEDS ORDERED: SODIUM CHLOR 0.9% 1000 ML INJ 1,000 ML IV ONE ×2 (20:30)
[2017-06-07 20:31] LABS: AUTOMATED NEUTROPHIL # 11.9 TH/MM3 (1.8-7.7); BASOPHIL % 0.3 % (0.0-2.0); EOSINOPHIL # 0.1 TH/MM3 (0-0.4); EOSINOPHIL % 0.4 % (0.0-4.0); HEMATOCRIT 36.4 % (35.0-46.0); LYMPH % 9.9 % (9.0-44.0); LYMPHOCYTE # 1.4 TH/MM3 (1.0-4.8); MEAN CELL VOLUME 82.9 FL (80.0-100.0); MEAN CORPUSCULAR HEMOGLOBIN 27.4 PG (27.0-34.0); MEAN PLATELET VOLUME 6.6 FL (7.0-11.0); MONO % 6.2 % (0.0-8.0); MONOCYTE # 0.9 TH/MM3 (0-0.9); NEUT % 83.2 % (16.0-70.0); PLATELET COUNT 402 TH/MM3 (150-450); RED BLOOD COUNT 4.39 MIL/MM3 (4.00-5.30); RED CELL DISTRIBUTION WIDTH 14.1 % (11.6-17.2); WHITE BLOOD COUNT 14.3 TH/MM3 (4.0-11.0)
[2017-06-07 20:46] LABS: AMORPHOUS SEDIMENT, URINE RARE; BACTERIA, URINE RARE /hpf; BILIRUBIN, URINE NEG (NEG); BLOOD, URINE MOD (NEG); GLUCOSE,URINE NEG (NEG); KETONE, URINE NEG (NEG); NITRITE,URINE NEG (NEG); PH, URINE 6.5 (5.0-8.5); SQUAMOUS EPITHELIAL CELL URINE 5 /hpf (0-5); URINE COLOR YELLOW (YELLW/STRAW); URINE LEUKOCYTE ESTERASE LARGE (NEG)
[2017-06-07 20:55] LABS: INTERNATIONAL NORMALIZED RATIO 1.1 RATIO
[2017-06-07 20:58] LABS: ALBUMIN 3.2 GM/DL (3.4-5.0); BICARBONATE 27.3 MEQ/L (21.0-32.0); BLOOD UREA NITROGEN 10 MG/DL (7-18); CHLORIDE 92 MEQ/L (98-107); CREATININE 0.78 MG/DL (0.50-1.00); GLOMERULAR FILTRATION RATE 86 ML/MIN (>89); GLUCOSE,RANDOM 97 MG/DL (74-106); LIPASE 56 U/L (73-393); SODIUM (NA) 128 MEQ/L (136-145)
[2017-06-07 20:59] LABS: ALT (GPT) 31 U/L (10-53); AST (GOT) 24 U/L (15-37)
[2017-06-07] MEDS ORDERED: HYDROmorphone HCL PF 1 MG/ML VIAL IV PUSH ONE ×2 (21:00)
[2017-06-07 21:01] LABS: ALKALINE PHOSPHATASE 105 U/L (45-117); TOTAL BILIRUBIN ADULT 0.7 MG/DL (0.2-1.0); TOTAL PROTEIN 8.4 GM/DL (6.4-8.2)
--- NOTE | 2017-06-07 21:20 | RADRPT ---
EXAM DATE/TIME: 06/07/2017 20:50 [facility] COMPARISON: CHEST SINGLE AP, March 21, 2017, 23:45. INDICATIONS : Right side chest pain. MEDICAL HISTORY : None. SURGICAL HISTORY : None. ENCOUNTER: Initial ACUITY: 1 day PAIN SCORE: 9/10 LOCATION: Right chest FINDINGS: A single view of the chest demonstrates the lungs to be symmetrically aerated without evidence of mas s, infiltrate or effusion. The cardiomediastinal contours are unremarkable. Osseous structures are intact. There multiple overlying electrocardiogram leads. CONCLUSION: No acute disease. Lenny Elliott MD on June 07, 2017 at 21:18 Board Certified Radiologist. This report was verified electronically.
[2017-06-07] MEDS ORDERED: DOXYCYCLINE INJ 100 MG in SODIUM CHLORIDE 0.9% INJ 100 ML IV ONE ×4 (21:30)
[2017-06-07] MEDS ORDERED: ceFOXitin INJ 2 GM in SODIUM CHLORIDE 0.9% INJ 100 ML IV ONE ×4 (21:30)
[2017-06-07] MEDS ORDERED: IOHEXOL 350 MG/ML 10 ML VIAL (for RAD DIAG) IVCONTRAST ONE ×2 (22:33)
--- NOTE | 2017-06-07 22:40 | RADRPT ---
EXAM DATE/TIME: 06/07/2017 22:19 [facility] COMPARISON: CHEST SINGLE AP, June 07, 2017, 20:50. INDICATIONS : Right upper quadrant pain. Right-sided chest pain. IV CONTRAST: 76 cc Omnipaque 350 (iohexol) IV ; Cumulative dose for multiple exams. RADIATION DOSE: 6.54 CTDIvol (mGy) MEDICAL HISTORY : None SURGICAL HISTORY : None. ENCOUNTER: Initial ACUITY: 1 day PAIN SCALE: 6/10 LOCATION: Right upper quadrant TECHNIQUE: Volumetric scanning of the chest was performed using a pulmonary embolism protocol MIP images were re constructed. Using automated exposure control and adjustment of the mA and/or kV according to patien t size, radiation dose was kept as low as reasonably achievable to obtain optimal diagnostic quality images. DICOM format image data is available electronically for review and comparison. Follow-up recommendations for detected pulmonary nodules are based at a minimum on nodule size and pa tient risk factors according to Fleischner Society Guidelines. FINDINGS: PULMONARY ARTERIES: No filling defects are seen in the pulmonary arteries through the segmental level. LUNGS: There is no consolidation or pneumothorax . No concerning pulmonary nodule is visualized. PLEURAE: There is no pleural thickening or pleural effusion. MEDIASTINUM: There is good visualization of the great vessels of the middle mediastinum. No evidence of mediastin al or hilar adenopathy/mass. MUSCULOSKELETAL: Within normal limits for patient age. MISCELLANEOUS: The visualized upper abdominal organs demonstrate no acute abnormality. CONCLUSION: 1. No evidence of pulmonary embolism. 2. Lungs are clear. Lenny Elliott MD on June 07, 2017 at 22:37 Board Certified Radiologist. This report was verified electronically.
--- NOTE | 2017-06-07 22:46 | RADRPT ---
EXAM DATE/TIME: 06/07/2017 22:17 [facility] COMPARISON: No previous studies available for comparison. INDICATIONS : Right upper quadrant pain. IV CONTRAST: 76 cc Omnipaque 350 (iohexol) IV ; Cumulative dose for multiple exams. ORAL CONTRAST: No oral contrast ingested. RADIATION DOSE: 9.52 CTDIvol (mGy) MEDICAL HISTORY : None SURGICAL HISTORY : None. ENCOUNTER: Initial ACUITY: 1 day PAIN SCALE: 6/10 LOCATION: Right upper quadrant TECHNIQUE: Volumetric scanning of the abdomen and pelvis was performed. Using automated exposure control and ad justment of the mA and/or kV according to patient size, radiation dose was kept as low as reasonably achievable to obtain optimal diagnostic quality images. DICOM format image data is available electro nically for review and comparison. FINDINGS: LOWER LUNGS: The visualized lower lungs are clear. LIVER: Homogeneous density without lesion. There is no dilation of the biliary tree. The gallbladder is sma ll and contracted. SPLEEN: Normal size without lesion. PANCREAS: Within normal limits. KIDNEYS: Normal in size and shape. There is no mass, stone or hydronephrosis. ADRENAL GLANDS: Within normal limits. VASCULAR: There is no aortic aneurysm. BOWEL/MESENTERY: No oral contrast was given during the sensitivity of the exam. There is an abnormal bowel gas pattern with poor delineation of the bowel and mesentery. There is a paucity of mesenteric fat. There is mil d gaseous distention of portions of the colon with air-fluid levels noted as well. Fluid is noted in the stomach apparent dilatation of the duodenum. No definite free air is identified. No distinct foca l fluid collection is identified. ABDOMINAL WALL: Within normal limits. RETROPERITONEUM: There is no lymphadenopathy. BLADDER: No wall thickening or mass. REPRODUCTIVE: Within normal limits. INGUINAL: There is no lymphadenopathy or hernia. MUSCULOSKELETAL: Within normal limits for patient age. CONCLUSION: 1. Abnormal nonspecific bowel gas pattern which could represent gastroenteritis or ileus. There is chahal boptimal visualization due to the lack of oral contrast and portal delineation of the bowel loops sec ondary to minimal mesenteric fat. The stomach and proximal duodenum are dilated and full of fluid. 2. Gallbladder is contracted. Lenny Elliott MD on June 07, 2017 at 22:40 Board Certified Radiologist. This report was verified electronically.
[2017-06-07 22:48] VITALS: BP 120/72; PULSE 103; RESP 16
[2017-06-07 22:50] VITALS: O2SAT 96
--- NOTE | 2017-06-08 00:08 | RADRPT ---
EXAM DATE/TIME: 06/07/2017 23:37 [facility] COMPARISON: CT ABDOMEN & PELVIS W CONTRAST, June 07, 2017, 22:17. INDICATIONS : Right upper quadrant pain. MEDICAL HISTORY : Gastroesophageal reflux disease. Seizures. Asthma. Ovarian cyst. Substance abuse. Hepatitis. SURGICAL HISTORY : Dilation and curettage. ENCOUNTER: Initial ACUITY: 2 days PAIN SCORE: 6/10 LOCATION: Right upper quadrant MEASUREMENTS: LIVER: 19.7 cm length COMMON DUCT: 3 mm RIGHT KIDNEY: 11.0 x 4.9 x 4.1 cm FINDINGS: Stomach and duodenum are dilated. LIVER: Normal echotexture without focal lesion or ductal dilatation. COMMON DUCT: No intraluminal mass or stone visualized. GALLBLADDER: Contracted PANCREAS: The visualized portions are within normal limits. RIGHT KIDNEY: No evidence of hydronephrosis, stone, or mass. CONCLUSION: Unremarkable sonographic appearance of the right upper quadrant Francisco Li MD on June 08, 2017 at 0:01 Board Certified Radiologist. This report was verified electronically.
--- NOTE | 2017-06-08 02:11 | HHI.DCPOC ---
Discharge Care Plan Goals to Promote Your Health * To prevent worsening of your condition and complications take all medications as prescribed * To maintain your health at the optimal level follow-up with your primary care provider in 5 days Directions to Meet Your Goals Take your medications as prescribed Follow your dietary instruction Follow activity as directed Keep your appointments as scheduled Take your immunizations and boosters as scheduled If your symptoms worsen call your PCP, if no PCP go to Urgent Care Center or Emergency Room Smoking is Dangerous to Your Health. Avoid second hand smoke Call the 24-hour hour crisis hotline for domestic abuse at Nicole Kim MD Jun 08, 2017 02:10
--- NOTE | 2017-06-08 02:11 | HHI.DCPOC ---
Discharge Care Plan Goals to Promote Your Health * To prevent worsening of your condition and complications take all medications as prescribed * To maintain your health at the optimal level follow-up with your primary care provider in 5 days Directions to Meet Your Goals Take your medications as prescribed Follow your dietary instruction Follow activity as directed Keep your appointments as scheduled Take your immunizations and boosters as scheduled If your symptoms worsen call your PCP, if no PCP go to Urgent Care Center or Emergency Room Smoking is Dangerous to Your Health. Avoid second hand smoke Call the 24-hour hour crisis hotline for domestic abuse at Nicole Kim MD Jun 08, 2017 02:10
--- NOTE | 2017-06-08 02:11 | HHI.DCPOC ---
Discharge Care Plan Goals to Promote Your Health * To prevent worsening of your condition and complications take all medications as prescribed * To maintain your health at the optimal level follow-up with your primary care provider in 5 days Directions to Meet Your Goals Take your medications as prescribed Follow your dietary instruction Follow activity as directed Keep your appointments as scheduled Take your immunizations and boosters as scheduled If your symptoms worsen call your PCP, if no PCP go to Urgent Care Center or Emergency Room Smoking is Dangerous to Your Health. Avoid second hand smoke Call the 24-hour hour crisis hotline for domestic abuse at Nicole Kim MD Jun 08, 2017 02:10
--- NOTE | 2017-06-08 02:19 | HHI.HP ---
[facility] No Primary Care Physician Admission Diagnosis ileus; uti; pid; polysubstance abuse Diagnoses: Travel History International Travel<30 Days: No Contact w/Intl Traveler <30 Da: No Traveled to Known Affected Are: No History of Present Illness 31-year-old female with a past medical history significant for IV drug abuse, current daily heroin user, presents to the emergency department with a 2 day history of abdominal pain. Yesterday, the patient states that her pain was epigastric in nature and that it started after she felt a pop in her ribs while walking in the park. Patient denies any fevers or chills. She states that since being in the emergency department her pain has moved from the epigastric region to the pelvic area and radiates up towards her umbilicus. She also complains of shortness of breath but states this is secondary to her pain as it is worse when she takes a deep breath. CT of the abdomen and pelvis showed abnormal nonspecific bowel gas pattern which could represent gastroenteritis or ileus. Gallbladder was contracted but gallbladder ultrasound is unremarkable. CTA showed clear lungs with no evidence of pulmonary embolism. Pelvic exam performed in the emergency department was significant for kourtney pus draining from the cervical os. PCR positive for gonorrhea. Patient given antibiotics in the emergency department. Review of Systems Denies fever or chills Denies blurry vision, otorrhea, rhinorrhea Denies sore throat and cough No chest pain, palpitations, shortness of breath Abdominal pain as documented in history of present illness Denies constipation/diarrhea/nausea/vomiting Denies muscle pain/weakness No rashes Past Family Social History Past Medical History Hepatitis C Asthma Past Surgical History None Allergies: Coded Allergies: No Known Allergies (Verified Adverse Reaction, Unknown, 06/07/17) Family History Mother with diabetes mellitus. Social History Daily IV heroin user. Denies other illicit drugs. Smokes 5 cigarettes per day 20 years. Occasional alcohol. Physical Exam Vital Signs Vital Signs Date Time Temp Pulse Resp B/P (MAP) Pulse Ox O2 Delivery O2 Flow Rate FiO2 06/07/17 22:50 96 Room Air 06/07/17 22:48 103 16 120/72 (88) Room Air 06/07/17 20:02 98.5 112 06/07/17 20:01 18 164/77 (106) Physical Exam GENERAL: No acute distress SKIN: No rashes, ecchymoses or lesions. Cool and dry. HEAD: Atraumatic. Normocephalic. No temporal or scalp tenderness. EYES: Pupils equal round and reactive. Extraocular motions intact. No scleral icterus. No injection or drainage. ENT: Nose without bleeding, purulent drainage or septal hematoma. Throat without erythema, tonsillar hypertrophy or exudate. Uvula midline. Airway patent. NECK: Trachea midline. No JVD or lymphadenopathy. Supple, nontender, no meningeal signs. CARDIOVASCULAR: Regular rate and rhythm without murmurs, gallops, or rubs. RESPIRATORY: Clear to auscultation. Breath sounds equal bilaterally. No wheezes , rales, or rhonchi. GASTROINTESTINAL: Abdomen soft, tender to palpation, voluntary guarding. MUSCULOSKELETAL: Extremities without clubbing, cyanosis, or edema. No joint tenderness, effusion, or edema noted. No calf tenderness. Negative Homans sign bilaterally. NEUROLOGICAL: Awake and alert. Cranial nerves II through XII intact. Motor and sensory grossly within normal limits. Five out of 5 muscle strength in all muscle groups. Normal speech. Laboratory Laboratory Tests Test 06/07/17 20:20 06/07/17 20:35 06/07/17 21:20 White Blood Count 14.3 Red Blood Count 4.39 Hemoglobin 12.0 Hematocrit 36.4 Mean Corpuscular Volume 82.9 Mean Corpuscular Hemoglobin 27.4 Mean Corpuscular Hemoglobin Concent 33.0 Red Cell Distribution Width 14.1 Platelet Count 402 Mean Platelet Volume 6.6 Neutrophils (%) (Auto) 83.2 Lymphocytes (%) (Auto) 9.9 Monocytes (%) (Auto) 6.2 Eosinophils (%) (Auto) 0.4 Basophils (%) (Auto) 0.3 Neutrophils # (Auto) 11.9 Lymphocytes # (Auto) 1.4 Monocytes # (Auto) 0.9 Eosinophils # (Auto) 0.1 Basophils # (Auto) 0.0 CBC Comment DIFF FINAL Differential Comment Prothrombin Time 12.0 Prothromb Time International Ratio 1.1 Activated Partial Thromboplast Time 30.9 Blood Urea Nitrogen 10 Creatinine 0.78 Random Glucose 97 Total Protein 8.4 Albumin 3.2 Calcium Level 9.0 Alkaline Phosphatase 105 Aspartate Amino Transf (AST/SGOT) 24 Alanine Aminotransferase (ALT/SGPT) 31 Total Bilirubin 0.7 Sodium Level 128 Potassium Level 3.6 Chloride Level 92 Carbon Dioxide Level 27.3 Anion Gap 9 Estimat Glomerular Filtration Rate 86 Lactic Acid Level 1.9 Lipase 56 Urine Color YELLOW Urine Turbidity HAZY Urine pH 6.5 Urine Specific [place] 1.015 Urine Protein TRACE Urine Glucose (UA) NEG Urine Ketones NEG Urine Occult Blood MOD Urine Nitrite NEG Urine Bilirubin NEG Urine Urobilinogen LESS THAN 2.0 Urine Leukocyte Esterase LARGE Urine RBC 13 Urine WBC 158 Urine Squamous Epithelial Cells 5 Urine Amorphous Sediment RARE Urine Bacteria RARE Microscopic Urinalysis Comment CATH-CULTURE IND Urine Opiates Screen POS Urine Barbiturates Screen NEG Urine Amphetamines Screen POS Urine Benzodiazepines Screen NEG Urine Cocaine Screen POS Urine Cannabinoids Screen NEG Clue Cells (Wet Prep) NONE SEEN Vaginal Trichomonas (Wet Prep) NONE SEEN Vaginal Yeast (Wet Prep) NONE SEEN Chlamydia trachomatis DNA (PCR) NOT DETECTED Neisseria gonorrhoeae DNA (PCR) DETECTED Date/Time Source Procedure Growth Status 06/07/17 21:15 Blood Peripheral Aerobic Blood Culture Pending Received 06/07/17 21:15 Blood Peripheral Anaerobic Blood Culture Pending Received 06/07/17 20:35 Urine Catheterized Urine Urine Culture Pending Received Result Diagram: 06/07/17201906/07/172019 Caprini VTE Risk Assessment Caprini VTE Risk Assessment: No/Low Risk (score <= 1) Caprini Risk Assessment Model Point Value = 1 Point Value = 2 Point Value = 3 Point Value = 5 Age 41-60 Minor surgery BMI > 25 kg/m2 Swollen legs Varicose veins or History of unexplained or recurrent spontaneous Oral contraceptives or hormone replacement Sepsis (< 1 month) Serious lung disease, including pneumonia (< 1 month) Abnormal pulmonary function Acute myocardial infarction Congestive heart failure (< 1 month) History of inflammatory bowel disease Medical patient at bed rest Age 61-74 Arthroscopic surgery Major open surgery (> 45 min) Laparoscopic surgery (> 45 min) Malignancy Confined to bed (> 72 hours) Immobilizing plaster cast Central venous access Age >= 75 History of VTE Family history of VTE Factor V Leiden Prothrombin [id number] Lupus anticoagulant Anticardiolipin antibodies Elevated serum homocysteine Heparin-induced thrombocytopenia Other congenital or acquired thrombophilia Stroke (< 1 month) Elective arthroplasty Hip, pelvis, or leg fracture Acute spinal cord injury (< 1 month) Prophylaxis Regimen Total Risk Factor Score Risk Level Prophylaxis Regimen 0-1 Low Early ambulation 2 Moderate Order ONE of the following: *Sequential Compression Device (SCD) *Heparin 5000 units SQ BID 3-4 Higher Order ONE of the following medications: *Heparin 5000 units SQ TID *Enoxaparin/Lovenox 40 mg SQ daily (WT < 150 kg, CrCl > 30 mL/min) *Enoxaparin/Lovenox 30 mg SQ daily (WT < 150 kg, CrCl > 10-29 mL/min) *Enoxaparin/Lovenox 30 mg SQ BID (WT < 150 kg, CrCl > 30 mL/min) AND/OR *Sequential Compression Device (SCD) 5 or more Highest Order ONE of the following medications: *Heparin 5000 units SQ TID (Preferred with Epidurals) *Enoxaparin/Lovenox 40 mg SQ daily (WT < 150 kg, CrCl > 30 mL/min) *Enoxaparin/Lovenox 30 mg SQ daily (WT < 150 kg, CrCl > 10-29 mL/min) *Enoxaparin/Lovenox 30 mg SQ BID (WT < 150 kg, CrCl > 30 mL/min) AND *Sequential Compression Device (SCD) Assessment and Plan Assessment and Plan 31-year-old female with IV drug abuse presented to the emergency department with abdominal pain and positive gonorrhea with kourtney pus at the cervical os on pelvic exam. 1. Acute gonorrhea Treated with Rocephin in the emergency department Patient will follow up with PCP in 3-5 days 2. Abdominal pain Secondary to acute gonococcal infection CT of the abdomen and pelvis as documented in history of present illness 3. IV drug abuse Cessation counseling given Patient reports that she has been discussing stopping with her , has been in contact with Aristides Cox 4. Hepatitis C Recommend follow-up with PCP Patient discharged after adequate treatment for gonococcal infection. Recommend close follow-up with PCP. Nicole Kim MD Jun 08, 2017 02:19
[2017-06-08 03:37] VITALS: BP 115/71; PULSE 97; RESP 20; TEMP 96.7; O2SAT 94
[2017-06-08 08:25] VITALS: BP 112/68; PULSE 87; RESP 20; TEMP 96.4; O2SAT 100
--- NOTE | 2017-06-08 13:28 | EKG ---
Date Performed: 06/07/2017 Time Performed: 20:09:04 PTAGE: 31 years EKG: SINUS TACHYCARDIA POSSIBLE LEFT ATRIAL ENLARGEMENT ABNORMAL RHYTHM ECG Compared to prior tr acing no significant change PREVIOUS TRACING : 04/01/2017 23.51 DOCTOR: David Elder Interpretating Date/Time 06/08/2017 13:25:18
== END 2017-06-08 10:12 | disposition home or self-care (01) ==
LOC: NEPC 19:53 → NEDA 06-08 00:22 → NEPGCP 06-08 01:56
PROVIDERS: ADMIT Hospitalist; ATTEND Hospitalist
DX: N73.0 Acute parametritis and pelvic cellulitis (principal); E87.1 Hypo-osmolality and hyponatremia; N39.0 Urinary tract infection, site not specified; B19.20 Unspecified viral hepatitis C without hepatic coma; F11.90 Opioid use, unspecified, uncomplicated; F19.10 Other psychoactive substance abuse, uncomplicated; F31.9 Bipolar disorder, unspecified; J45.909 Unspecified asthma, uncomplicated; K21.9 Gastro-esophageal reflux disease without esophagitis; F17.210 Nicotine dependence, cigarettes, uncomplicated; Z87.11 Personal history of peptic ulcer disease
CPT/HCPCS: 71010; 71275; 74177; 76705; 80053; 80307; 81001; 83605; 83690; 84703; 85025; 85610; 85730; 87040; 87086; 87210; 87491; 87591; 93005; 96361; 96365; 96375; 99285; G0378; J0694; J1170; J2270; J2405; J7030; Q9967

== ENCOUNTER 2017-07-21 15:35 | Emergency (ER) | payer SELFPAY ==
[~2017-07-21] VITALS: Ht 162.6 cm; Wt 56.0 kg
[~2017-07-21 15:35] MED LIST changes: -BUSP15TA PO; -GABA300C5 PO; -GABA600T PO; -LITH300T3 PO; -SUBO8MIS SL; -ZOLO100T PO
[2017-07-21 15:40] VITALS: BP 133/80; PULSE 106; RESP 15; O2SAT 96
[2017-07-21] MEDS ORDERED: SODIUM CHLORIDE 0.9% FLUSH 10 ML FLUSH IVF PRN (15:45)
--- NOTE | 2017-07-21 15:47 | PD ---
HPI Chief Complaint: OD/ Ingestion Time Seen by Provider: 15:43 Travel History International Travel<30 days: No Contact w/Intl Traveler<30days: No Traveled to known affect area: No History of Present Illness HPI 31-year-old female patient with history of IV drug use, presents to the ER today brought in by EMS because of hair when overdose. Patient was initially unarousable but awoke without Narcan use. She admits to taking heroin but states that she wants to get help and wants rehabilitation. She denies any other ingestions. She denies any other issues. Modifying Factors: None Associated Signs & Symptoms: Heroin overdose Risk Factors: IV drug use PFSH Past Medical History Hx Anticoagulant Therapy: No ADHD: Yes Arthritis: No Asthma: No Blood Disorders: No Bipolar Disorder: Yes Anxiety: No Depression: No Heart Rhythm Problems: No Cancer: No Cardiovascular Problems: No High Cholesterol: No Chemotherapy: No Chest Pain: No Congestive Heart Failure: No COPD: No Cerebrovascular Accident: No Diabetes: No Diminished Hearing: No Endocrine: No GERD: Yes Genitourinary: Yes (vaginal infection right now as per report) Hepatitis: Yes (C) Immune Disorder: No Musculoskeletal: No Neurologic: Yes (abdominal pains right now) Psychiatric: No Reproductive: No Respiratory: No Integumentary: Yes (abscess left arm) Migraines: Yes Pneumonia: Yes Radiation Therapy: No Seizures: Yes Sleep Apnea: No Thyroid Disease: No ?: Unknown : 3 Para: 2 Miscarriage: 1 : 2 Ovarian Cysts: Yes (Lt. ovarian cyst ruptured ) Dilation and Curettage (D&C): Yes Past Surgical History Abdominal Surgery: No Cardiac Surgery: No Ear Surgery: No Endocrine Surgery: No Eye Surgery: No Genitourinary Surgery: No Gynecologic Surgery: Yes Hysterectomy: No Oral Surgery: No Thoracic Surgery: No Family History Family Hypercholesterolemia: Yes Social History Alcohol Use: No Tobacco Use: Yes Substance Use: Yes Allergies-Medications (Allergen,Severity, Reaction): Coded Allergies: No Known Allergies (Verified Adverse Reaction, Unknown, 07/21/17) Reported Meds & Prescriptions Reported Meds & Active Scripts Active Proventil Hfa 6.7 GM Inh (Albuterol Sulfate) 90 Mcg/Act Aer 2 Puff INH Q4-6H PRN Review of Systems Except as stated in HPI: all other systems reviewed are Neg Physical Exam Narrative GENERAL: Well-developed young female patient currently in mild distress. Awake and oriented 3. SKIN: Focused skin assessment warm/dry. HEAD: Atraumatic. Normocephalic. EYES: Pupils equal and round. No scleral icterus. No injection or drainage. ENT: No nasal bleeding or discharge. Mucous membranes pink and moist. NECK: Trachea midline. No JVD. CARDIOVASCULAR: Regular rate and rhythm. No murmur appreciated. RESPIRATORY: No accessory muscle use. Clear to auscultation. Breath sounds equal bilaterally. GASTROINTESTINAL: Abdomen soft, non-tender, nondistended. Hepatic and splenic margins not palpable. MUSCULOSKELETAL: No obvious deformities. No clubbing. No cyanosis. No edema. NEUROLOGICAL: Awake and alert. No obvious cranial nerve deficits. Motor grossly within normal limits. Normal speech. PSYCHIATRIC: Appropriate mood and affect; insight and judgment normal. Data Data Last Documented VS Vital Signs Date Time Temp Pulse Resp B/P (MAP) Pulse Ox O2 Delivery O2 Flow Rate FiO2 07/21/17 15:40 106 15 133/80 (97) 96 Room Air Orders Orders Complete Blood Count With Diff (07/21/17 15:43) Comprehensive Metabolic Panel (07/21/17 15:43) Iv Access Insert/Monitor (07/21/17 15:43) Ecg Monitoring (07/21/17 15:43) Oximetry (07/21/17 15:43) Sodium Chloride 0.9% Flush (Ns Flush) (07/21/17 15:45) Alcohol (Ethanol) (07/21/17 15:43) Salicylates (Aspirin) (07/21/17 15:43) Tylenol (Acetaminophen) (07/21/17 15:43) Ed Urine Pregnancytest Poc (07/21/17 15:43) Labs Laboratory Tests Test 07/21/17 15:40 White Blood Count 5.9 TH/MM3 Red Blood Count 4.19 MIL/MM3 Hemoglobin 11.4 GM/DL Hematocrit 34.6 % Mean Corpuscular Volume 82.6 FL Mean Corpuscular Hemoglobin 27.3 PG Mean Corpuscular Hemoglobin Concent 33.0 % Red Cell Distribution Width 15.2 % Platelet Count 285 TH/MM3 Mean Platelet Volume 6.4 FL Neutrophils (%) (Auto) 72.4 % Lymphocytes (%) (Auto) 20.0 % Monocytes (%) (Auto) 6.4 % Eosinophils (%) (Auto) 0.6 % Basophils (%) (Auto) 0.6 % Neutrophils # (Auto) 4.3 TH/MM3 Lymphocytes # (Auto) 1.2 TH/MM3 Monocytes # (Auto) 0.4 TH/MM3 Eosinophils # (Auto) 0.0 TH/MM3 Basophils # (Auto) 0.0 TH/MM3 CBC Comment DIFF FINAL Differential Comment Blood Urea Nitrogen 13 MG/DL Creatinine 0.74 MG/DL Random Glucose 106 MG/DL Total Protein 7.2 GM/DL Albumin 3.0 GM/DL Calcium Level 8.1 MG/DL Alkaline Phosphatase 59 U/L Aspartate Amino Transf (AST/SGOT) 24 U/L Alanine Aminotransferase (ALT/SGPT) 25 U/L Total Bilirubin 0.5 MG/DL Sodium Level 138 MEQ/L Potassium Level 4.1 MEQ/L Chloride Level 104 MEQ/L Carbon Dioxide Level 27.8 MEQ/L Anion Gap 6 MEQ/L Estimat Glomerular Filtration Rate 92 ML/MIN Salicylates Level LESS THAN 1.7 MG/DL Acetaminophen Level 3.0 MCG/ML Ethyl Alcohol Level LESS THAN 3 MG/DL MDM Medical Decision Making Medical Screen Exam Complete: Yes Emergency Medical Condition: Yes Medical Record Reviewed: Yes Interpretation(s) Laboratory Tests Test 07/21/17 15:40 Hemoglobin 11.4 GM/DL (11.6-15.3) Hematocrit 34.6 % (35.0-46.0) Mean Platelet Volume 6.4 FL (7.0-11.0) Neutrophils (%) (Auto) 72.4 % (16.0-70.0) Albumin 3.0 GM/DL (3.4-5.0) Calcium Level 8.1 MG/DL (8.5-10.1) Salicylates Level LESS THAN 1.7 MG/DL Acetaminophen Level 3.0 MCG/ML (10.0-30.0) Differential Diagnosis Opiate overdose Narrative Course Patient admits to overdose, and did not get Narcan. She is completely awake and oriented in the ER, was observed for an hour without any changes. At this point, lab work is unremarkable and I have discussed the findings with the patient. She states that she is just taking heroin in order to avoid getting the withdrawal symptoms and is trying to get herself into rehabilitation. Have also asked case management to look into [facility] or other rehabilitation information as well. At this point, my plan would be to release her with follow-up to rehabilitation facility. Return for any new issues as needed. The plan has been discussed with her and she states understanding. Diagnosis Primary Impression: Opiate overdose Referrals: [facility] Disposition: 01 DISCHARGE HOME Condition: Stable Mikhail Garza MD Jul 21, 2017 15:47
[2017-07-21 16:17] LABS: AUTOMATED NEUTROPHIL # 4.3 TH/MM3 (1.8-7.7); BASOPHIL % 0.6 % (0.0-2.0); EOSINOPHIL % 0.6 % (0.0-4.0); HEMATOCRIT 34.6 % (35.0-46.0); HEMOGLOBIN 11.4 GM/DL (11.6-15.3); LYMPHOCYTE # 1.2 TH/MM3 (1.0-4.8); MEAN CELL VOLUME 82.6 FL (80.0-100.0); MEAN CORPUSCULAR HEMOGLOBIN 27.3 PG (27.0-34.0); MEAN PLATELET VOLUME 6.4 FL (7.0-11.0); MONO % 6.4 % (0.0-8.0); MONOCYTE # 0.4 TH/MM3 (0-0.9); NEUT % 72.4 % (16.0-70.0); PLATELET COUNT 285 TH/MM3 (150-450); RED BLOOD COUNT 4.19 MIL/MM3 (4.00-5.30); RED CELL DISTRIBUTION WIDTH 15.2 % (11.6-17.2); WHITE BLOOD COUNT 5.9 TH/MM3 (4.0-11.0)
[2017-07-21 16:37] LABS: AST (GOT) 24 U/L (15-37); BICARBONATE 27.8 MEQ/L (21.0-32.0); BLOOD UREA NITROGEN 13 MG/DL (7-18); CALCIUM 8.1 MG/DL (8.5-10.1); CHLORIDE 104 MEQ/L (98-107); CREATININE 0.74 MG/DL (0.50-1.00); GLOMERULAR FILTRATION RATE 92 ML/MIN (>89); GLUCOSE,RANDOM 106 MG/DL (74-106); SODIUM (NA) 138 MEQ/L (136-145)
[2017-07-21 16:38] LABS: ALT (GPT) 25 U/L (10-53)
[2017-07-21 16:40] LABS: ALKALINE PHOSPHATASE 59 U/L (45-117); TOTAL BILIRUBIN ADULT 0.5 MG/DL (0.2-1.0); TOTAL PROTEIN 7.2 GM/DL (6.4-8.2)
== END 2017-07-21 17:26 | disposition home or self-care (01) ==
LOC: NEPC 15:35
DX: T40.1X1A Poisoning by heroin, accidental (unintentional), initial encounter (principal); F90.9 Attention-deficit hyperactivity disorder, unspecified type; F31.9 Bipolar disorder, unspecified; K21.9 Gastro-esophageal reflux disease without esophagitis; R56.9 Unspecified convulsions; Z72.0 Tobacco use; Z79.51 Long term (current) use of inhaled steroids
CPT/HCPCS: 80053; 80307; 84703; 85025; 99283

== ENCOUNTER 2017-07-28 03:25 | Emergency (ER) | payer SELFPAY ==
[~2017-07-28] VITALS: Ht 162.6 cm; Wt 57.0 kg
[~2017-07-28 03:25] MED LIST changes: -BACT800T5 PO
[2017-07-28 03:26] VITALS: BP 129/88; PULSE 109; RESP 18; TEMP 98.1; O2SAT 100
[2017-07-28] MEDS ORDERED: CLINDAMYCIN 600 MG/DEX PREMIX 50 ML IV ONE (04:00)
[2017-07-28] MEDS ORDERED: LIDOCAINE 1%/EPINEPHrine 1:100,000 SOLN 20 ML VIAL INFIL ONE (04:00)
--- NOTE | 2017-07-28 05:18 | PD ---
HPI Chief Complaint: Skin Problem Time Seen by Provider: 03:52 Travel History International Travel<30 days: No Contact w/Intl Traveler<30days: No Traveled to known affect area: No History of Present Illness HPI 31-year-old white female presents to emergency department with a abscess to her right forearm from injecting IV drugs. Patient states that she injected approximately 1 week ago. Over the past week it has become increasingly painful and red. She has had a small amount of discharge. She had worsening over last 24 hours presents her to the ER. This is a patient who had taking care of for the same type of problem in the past. Pain is moderate. Worse with palpation. No alleviating factors. PFSH Past Medical History Hx Anticoagulant Therapy: No ADHD: Yes Arthritis: No Asthma: Yes Blood Disorders: No Bipolar Disorder: Yes Anxiety: No Depression: No Heart Rhythm Problems: No Cancer: No Cardiovascular Problems: No High Cholesterol: No Chemotherapy: No Chest Pain: No Congestive Heart Failure: No COPD: No Cerebrovascular Accident: No Diabetes: No Diminished Hearing: No Endocrine: No GERD: Yes Genitourinary: Yes (vaginal infection right now as per report) Headaches: Yes (Tension) Hepatitis: Yes (C) Immune Disorder: No Musculoskeletal: No Neurologic: Yes (abdominal pains right now) Psychiatric: No Reproductive: No Respiratory: No Integumentary: Yes (abscess left arm) Migraines: Yes Pneumonia: Yes Radiation Therapy: No Seizures: Yes Sleep Apnea: No Thyroid Disease: No Tetanus Vaccination: < 5 Years Influenza Vaccination: No ?: Unknown LMP: 06/30/17 : 2 Para: 1 Miscarriage: 1 : 2 Ovarian Cysts: Yes (Lt. ovarian cyst ruptured ) Dilation and Curettage (D&C): Yes Past Surgical History Surgical History: No Previous Surgery Abdominal Surgery: No Cardiac Surgery: No Ear Surgery: No Endocrine Surgery: No Eye Surgery: No Genitourinary Surgery: No Gynecologic Surgery: Yes Hysterectomy: No Oral Surgery: No Thoracic Surgery: No Family History Family Hypercholesterolemia: Yes Social History Alcohol Use: No Tobacco Use: Yes (1/2 pack per day) Substance Use: Yes (IV HEROIN) Allergies-Medications (Allergen,Severity, Reaction): Coded Allergies: No Known Allergies (Verified Adverse Reaction, Unknown, 07/28/17) Reported Meds & Prescriptions Reported Meds & Active Scripts Active Proventil Hfa 6.7 GM Inh (Albuterol Sulfate) 90 Mcg/Act Aer 2 Puff INH Q4-6H PRN Review of Systems General / Constitutional: No: Fever Eyes: No: Visual changes HENT: No: Headaches Cardiovascular: No: Chest Pain or Discomfort Respiratory: No: Shortness of Breath Gastrointestinal: No: Abdominal Pain Genitourinary: No: Dysuria Musculoskeletal: Positive: Edema, Pain Skin: Positive Lumps, No Rash Neurologic: No: Weakness Psychiatric: No: Depression Endocrine: No: Polydipsia Hematologic/Lymphatic: No: Easy Bruising Physical Exam Narrative GENERAL: This is a well-nourished, well-developed patient, in no apparent distress. SKIN: Patient has a large abscess to the right dorsal ulnar forearm. It measures approximately 4 x 6 cm. It is tender, erythematous, warm, fluctuant but no pointing. HEAD: Atraumatic. Normocephalic. EYES: PERRL, EOMI, no discharge or injection. No scleral icterus. EARS: Clear NOSE: Nasal turbinates appear normal. THROAT: Mucosa pink and moist. Airway patent. NECK: Trachea midline. supple, moves head freely. LUNGS: Clear to auscultation. CV: Regular in rhythm. ABDOMEN: Soft nontender. EXT: No clubbing cyanosis or edema. Abscess as described above. Multiple track maya. Data Data Last Documented VS Vital Signs Date Time Temp Pulse Resp B/P (MAP) Pulse Ox O2 Delivery O2 Flow Rate FiO2 07/28/17 03:46 20 07/28/17 03:26 98.1 109 129/88 (102) 100 Room Air Orders Orders Lidocai-Epi 1%-1:100,000 Inj (Xylocaine- (07/28/17 04:00) Clindamycin 600 Mg/Dex Premix (Cleocin 6 (07/28/17 04:00) Iv Access Insert/Monitor (07/28/17 03:56) MDM Medical Decision Making Medical Screen Exam Complete: Yes Emergency Medical Condition: Yes Medical Record Reviewed: Yes Differential Diagnosis MDM: High Differential diagnoses: Abscess, folliculitis, cellulitis, lymphangitis, abrasion, contact dermatitis Narrative Course I have had my typical discussion once again with this patient regarding substance abuse. She verbalizes understanding. Patient's abscesses incised and drained. Patient is given clindamycin 600 mg IV. Procedures Procedure Narrative I&D abscess: After the risks and benefits were discussed the following procedure was performed. The skin is prepped and draped in the usual sterile fashion using Betadine. The abscess is anesthetized with 1% lidocaine with epinephrine . After adequate anesthesia, an 11 blade scalpel is used to make a 3 centimeter central incision. Perulant material is expressed. Loculations are broken up using curved Nuvia forceps. The wound is cleansed deeply using dilute Betadine and peroxide on Q-tips. The wound is packed open using iodoform gauze. A clean dressing is applied. The patient tolerated the procedure well. There was no complications. Follow-up instructions were given to the patient. Diagnosis Primary Impression: Abscess of right forearm Additional Impression: IVDU (intravenous drug user) Referrals: [facility] 1 week Patient Instructions: General Instructions Additional Instructions: Rest. Elevation. keep clean and dry. remove the packing in two days. Daily wound care with soap, water and Neosporin. Three Advil every 6 hours. Clindamycin and Bactrim DS. Follow-up with a primary care doctor in one week. Return to the ER for any problems. Med/Other Pt SpecificInfo: Prescription(s) given Disposition: DISCHARGE HOME Condition: Stable Daren Toscano Jul 28, 2017 05:18
[2017-07-28] MEDS ORDERED: CLIN150 PO (05:36)
[2017-07-28] MEDS ORDERED: BACT800T5 PO (05:36)
== END 2017-07-28 05:46 | disposition home or self-care (01) ==
LOC: NEPD 03:25
DX: L02.413 Cutaneous abscess of right upper limb (principal)
CPT/HCPCS: 10060; 10061; 96365

== ENCOUNTER 2017-08-14 17:01 | Emergency (ER) | payer SELFPAY ==
[~2017-08-14 17:01] MED LIST changes: +BACT800T5 PO; +CLIN150 PO
[2017-08-14 17:02] VITALS: BP 121/89; PULSE 107; RESP 14; TEMP 98.4; O2SAT 97
--- NOTE | 2017-08-15 19:59 | PD ---
HPI Chief Complaint: Skin Problem Time Seen by Provider: 17:30 Travel History International Travel<30 days: No Contact w/Intl Traveler<30days: No Traveled to known affect area: No History of Present Illness HPI Patient is a 31-year-old female presenting to the emergency department for evaluation of lower lip swelling. Patient states states it started 2 days ago. She states it has been draining pus-like fluid from a lesion just below her lower her lip. Patient denies any fevers, she endorses IV drug use. Symptoms started gradually. Patient reports the pain as a 5 out of 10, she states it's throbbing and aching. There are no alleviating factors, pain is exacerbated when it's touched. Patient has not taken any medication to alleviate the pain. She denies any shortness of breath, wheezing, dysphagia. PFSH Past Medical History Hx Anticoagulant Therapy: No ADHD: Yes Arthritis: No Asthma: Yes Blood Disorders: No Bipolar Disorder: Yes Anxiety: No Depression: No Heart Rhythm Problems: No Cancer: No Cardiovascular Problems: No High Cholesterol: No Chemotherapy: No Chest Pain: No Congestive Heart Failure: No COPD: No Cerebrovascular Accident: No Diabetes: No Diminished Hearing: No Endocrine: No GERD: Yes Genitourinary: Yes (vaginal infection right now as per report) Headaches: Yes (Tension) Hepatitis: Yes (C) Immune Disorder: No Musculoskeletal: No Neurologic: Yes (abdominal pains right now) Psychiatric: No Reproductive: No Respiratory: No Integumentary: Yes (abscess left arm) Migraines: Yes Pneumonia: Yes Radiation Therapy: No Seizures: Yes Sleep Apnea: No Thyroid Disease: No ?: Unknown LMP: Thanksgiving : 2 Para: 1 Miscarriage: 1 : 2 Ovarian Cysts: Yes (Lt. ovarian cyst ruptured ) Dilation and Curettage (D&C): Yes Past Surgical History Abdominal Surgery: No Cardiac Surgery: No Ear Surgery: No Endocrine Surgery: No Eye Surgery: No Genitourinary Surgery: No Gynecologic Surgery: Yes Hysterectomy: No Oral Surgery: No Thoracic Surgery: No Family History Family Hypercholesterolemia: Yes Social History Alcohol Use: No Tobacco Use: Yes (1/2 pack per day) Substance Use: Yes (IV HEROIN) Allergies-Medications (Allergen,Severity, Reaction): Coded Allergies: No Known Allergies (Verified Adverse Reaction, Unknown, 07/28/17) Reported Meds & Prescriptions Reported Meds & Active Scripts Active Bactrim DS (Sulfamethoxazole-Trimethoprim) 800-160 Mg Tab 1 Tab PO BID Cleocin (Clindamycin HCl) 150 Mg Cap 300 Mg PO Q6H 10 Days Proventil Hfa 6.7 GM Inh (Albuterol Sulfate) 90 Mcg/Act Aer 2 Puff INH Q4-6H PRN Review of Systems Except as stated in HPI: all other systems reviewed are Neg General / Constitutional: No: Fever, Chills Cardiovascular: No: Chest Pain or Discomfort Respiratory: No: Shortness of Breath, Wheezing Gastrointestinal: No: Nausea, Vomiting, Abdominal Pain Skin: Positive Change in Pigmentation, Positive Lesions, Positive Other Physical Exam Narrative GENERAL: Thin, well-developed, alert female. Presenting in no acute distress SKIN: Warm and dry. Lower lip is edematous and mildly erythematous. There is a scabbed lesion just inferior to the lower lip. HEAD: Normocephalic. EYES: No scleral icterus. No injection or drainage. NECK: Supple, trachea midline. No JVD or lymphadenopathy. CARDIOVASCULAR: Mild tachycardic RESPIRATORY: No increased work of breathing, No accessory muscle use. Data Data Last Documented VS Vital Signs Date Time Temp Pulse Resp B/P (MAP) Pulse Ox O2 Delivery O2 Flow Rate FiO2 08/14/17 17:02 98.4 107 14 121/89 (100) 97 [facility] Medical Decision Making Medical Screen Exam Complete: Yes Emergency Medical Condition: Yes Interpretation(s) Vital Signs Date Time Temp Pulse Resp B/P (MAP) Pulse Ox O2 Delivery O2 Flow Rate FiO2 08/14/17 17:02 98.4 107 14 121/89 (100) 97 Differential Diagnosis Cellulitis versus abscess versus angioedema versus sepsis versus other Narrative Course Patient's 31-year-old female that was initially seen and evaluated in triage, protocol orders initiated. Patient is mildly tachycardic on arrival, she is well-appearing otherwise. Patient is awaiting bed placement. She was called to be bedded in the emergency department, she was not found in the emergency room after several attempts. Patient left AMA Diagnosis Primary Impression: Left against medical advice Disposition: 07 LEFT WITHOUT BEING SEEN Alise Alamo Aug 15, 2017 19:59
== END 2017-08-14 22:05 | disposition left against medical advice (07) ==
LOC: NED 17:01
DX: R22.0 Localized swelling, mass and lump, head (principal); R00.0 Tachycardia, unspecified; F90.9 Attention-deficit hyperactivity disorder, unspecified type; J45.909 Unspecified asthma, uncomplicated; F31.9 Bipolar disorder, unspecified; K21.9 Gastro-esophageal reflux disease without esophagitis; R56.9 Unspecified convulsions; Z86.19 Personal history of other infectious and parasitic diseases; Z53.21 Procedure and treatment not carried out due to patient leaving prior to being seen by health care provider
CPT/HCPCS: 99281

== ENCOUNTER 2017-09-26 21:01 | Emergency (ER) | payer SELFPAY ==
[~2017-09-26] VITALS: Ht 160 cm; Wt 54.5 kg
[2017-09-26 21:06] VITALS: BP 143/81; PULSE 106; RESP 16; TEMP 100.5; O2SAT 99
[2017-09-26] MEDS ORDERED: ACETAMINOPHEN 325 MG TAB PO ONE (21:15)
[2017-09-26 21:50] LABS: AUTOMATED NEUTROPHIL # 2.8 TH/MM3 (1.8-7.7); BASOPHIL % 0.4 % (0.0-2.0); EOSINOPHIL % 0.5 % (0.0-4.0); HEMATOCRIT 38.4 % (35.0-46.0); HEMOGLOBIN 12.9 GM/DL (11.6-15.3); LYMPH % 22.9 % (9.0-44.0); LYMPHOCYTE # 0.9 TH/MM3 (1.0-4.8); MEAN CELL VOLUME 80.2 FL (80.0-100.0); MEAN CORPUSCULAR HGB CONC 33.7 % (32.0-36.0); MEAN PLATELET VOLUME 6.5 FL (7.0-11.0); MONO % 6.3 % (0.0-8.0); MONOCYTE # 0.3 TH/MM3 (0-0.9); NEUT % 69.9 % (16.0-70.0); PLATELET COUNT 285 TH/MM3 (150-450); RED BLOOD COUNT 4.79 MIL/MM3 (4.00-5.30); RED CELL DISTRIBUTION WIDTH 15.7 % (11.6-17.2); WHITE BLOOD COUNT 4.1 TH/MM3 (4.0-11.0)
[2017-09-26 22:00] LABS: BACTERIA, URINE MANY /hpf; BILIRUBIN, URINE NEG (NEG); BLOOD, URINE SMALL (NEG); GLUCOSE,URINE NEG (NEG); KETONE, URINE NEG (NEG); MUCUS URINE FEW /lpf (OCC); NITRITE,URINE POS (NEG); SQUAMOUS EPITHELIAL CELL URINE 2 /hpf (0-5); URINE COLOR YELLOW (YELLW/STRAW); URINE LEUKOCYTE ESTERASE NEG (NEG)
[2017-09-26 22:02] LABS: ALBUMIN 3.4 GM/DL (3.4-5.0); AST (GOT) 19 U/L (15-37); BICARBONATE 30.7 MEQ/L (21.0-32.0); BLOOD UREA NITROGEN 5 MG/DL (7-18); CALCIUM 8.8 MG/DL (8.5-10.1); CHLORIDE 96 MEQ/L (98-107); CREATININE 0.72 MG/DL (0.50-1.00); GLOMERULAR FILTRATION RATE 94 ML/MIN (>89); GLUCOSE,RANDOM 100 MG/DL (74-106); SODIUM (NA) 134 MEQ/L (136-145)
[2017-09-26 22:03] LABS: ALT (GPT) 17 U/L (10-53)
[2017-09-26 22:06] LABS: ALKALINE PHOSPHATASE 82 U/L (45-117); TOTAL BILIRUBIN ADULT 0.4 MG/DL (0.2-1.0); TOTAL PROTEIN 8.9 GM/DL (6.4-8.2)
[2017-09-27 01:00] VITALS: BP 117/70; PULSE 83; RESP 16; O2SAT 100
[2017-09-27] MEDS ORDERED: CLINDAMYCIN INJ 900 MG in SODIUM CHLORIDE 0.9% INJ 100 ML IV ONE (01:00)
[2017-09-27] MEDS ORDERED: SODIUM CHLOR 0.9% 1000 ML INJ 1,000 ML IV ONE (01:15)
[2017-09-27] MEDS ORDERED: KETOROLAC TROMETHAMINE 30 MG/ML (IVP) VIAL IV PUSH ONE (01:30)
[2017-09-27] MEDS ORDERED: LIDOCAINE 1%/EPINEPHrine 1:100,000 SOLN 20 ML VIAL INFIL ONE (02:30)
[2017-09-27] MEDS ORDERED: CLIN300C5 PO (02:59)
--- NOTE | 2017-09-27 02:59 | PD ---
HPI . Skin problem Chief Complaint: Skin Problem Time Seen by Provider: 00:50 Travel History International Travel<30 days: No Contact w/Intl Traveler<30days: No Traveled to known affect area: No History of Present Illness HPI 31-year-old female IV drug abuser with history of multiple abscesses, presents with having bilateral forearm abscesses, right spontaneously drained, left very tense in the proximal posterior aspect of her forearm. Patient denies any fevers chills sweats. Denies any chest pain, shortness of breath. Denies any lower extremity lesions edema or pain. PFSH Past Medical History Narrative Medical Past medical history reviewed Hx Anticoagulant Therapy: No ADHD: Yes Arthritis: No Asthma: Yes Blood Disorders: No Bipolar Disorder: Yes Anxiety: No Depression: No Heart Rhythm Problems: No Cancer: No Cardiovascular Problems: No High Cholesterol: No Chemotherapy: No Chest Pain: No Congestive Heart Failure: No COPD: No Cerebrovascular Accident: No Diabetes: No Diminished Hearing: No Endocrine: No Gastrointestinal Disorders: Yes (gas problems in past, abdominal pain now) GERD: Yes Genitourinary: Yes (vaginal infection right now as per report) Headaches: Yes (Tension) Hepatitis: Yes (C) Immune Disorder: No Musculoskeletal: No Neurologic: Yes (abdominal pains right now) Psychiatric: No Reproductive: No Respiratory: No Integumentary: Yes (abscess left arm) Migraines: Yes Pneumonia: Yes Radiation Therapy: No Seizures: Yes Sleep Apnea: No Thyroid Disease: No ?: Unknown : 2 Para: 1 Miscarriage: 1 : 2 Ovarian Cysts: Yes (Lt. ovarian cyst ruptured ) Dilation and Curettage (D&C): Yes Past Surgical History Surgical History: No Previous Surgery Abdominal Surgery: No Cardiac Surgery: No Ear Surgery: No Endocrine Surgery: No Eye Surgery: No Genitourinary Surgery: No Gynecologic Surgery: Yes Hysterectomy: No Neurologic Surgery: No Oral Surgery: No Thoracic Surgery: No Other Surgery: Yes (I and D history) Family History Family Hypercholesterolemia: Yes Social History Alcohol Use: No Tobacco Use: Yes (1/2 pack per day) Substance Use: Yes (IV HEROIN) Allergies-Medications (Allergen,Severity, Reaction): Coded Allergies: No Known Allergies (Verified Adverse Reaction, Unknown, 07/28/17) Reported Meds & Prescriptions Reported Meds & Active Scripts Active Bactrim DS (Sulfamethoxazole-Trimethoprim) 800-160 Mg Tab 1 Tab PO BID Cleocin (Clindamycin HCl) 150 Mg Cap 300 Mg PO Q6H 10 Days Proventil Hfa 6.7 GM Inh (Albuterol Sulfate) 90 Mcg/Act Aer 2 Puff INH Q4-6H PRN Narrative Medication Allergies and medications reviewed Review of Systems General / Constitutional: No: Fever Eyes: No: Visual changes HENT: No: Headaches Cardiovascular: No: Chest Pain or Discomfort Respiratory: No: Shortness of Breath Gastrointestinal: No: Abdominal Pain Genitourinary: No: Dysuria Musculoskeletal: Positive: Pain Skin: No Rash Neurologic: No: Weakness Psychiatric: No: Depression Endocrine: No: Polydipsia Hematologic/Lymphatic: No: Easy Bruising Physical Exam Narrative GENERAL: Awake alert oriented 3 no acute distress vital signs afebrile normal and stable SKIN: Warm and dry. HEAD: Atraumatic. Normocephalic. EYES: Pupils equal and round. No scleral icterus. No injection or drainage. ENT: No nasal bleeding or discharge. Mucous membranes pink and moist. NECK: Trachea midline. No JVD. Supple nontender full range of motion CARDIOVASCULAR: Regular rate and rhythm. S1-S2 no murmurs rubs or gallops RESPIRATORY: No accessory muscle use. Clear to auscultation. Breath sounds equal bilaterally. GASTROINTESTINAL: Abdomen soft, non-tender, nondistended. Hepatic and splenic margins not palpable. MUSCULOSKELETAL: Left forearm large tense abscess in the proximal posterior aspect, patient otherwise has full range of motion is neurovascular intact. Right forearm similar area right proximal posterior aspect which has spontaneously drained. Also neurovascular intact. See procedure note. NEUROLOGICAL: Awake and alert. No obvious cranial nerve deficits. Motor grossly within normal limits. Five out of 5 muscle strength in the arms and legs. Normal speech. PSYCHIATRIC: Appropriate mood and affect; insight and judgment normal. Data Data Last Documented VS Vital Signs Date Time Temp Pulse Resp B/P (MAP) Pulse Ox O2 Delivery O2 Flow Rate FiO2 09/27/17 01:00 83 16 117/70 (86) 100 09/26/17 21:06 100.5 Orders Orders Complete Blood Count With Diff (09/26/17 21:11) Comprehensive Metabolic Panel (09/26/17 21:11) Lactic Acid Sepsis Protocol (09/26/17 21:11) Urinalysis - C+S If Indicated (09/26/17 21:11) Ed Urine Pregnancytest Poc (09/26/17 21:11) Acetaminophen (Tylenol) (09/26/17 21:15) Urine Culture (09/26/17 21:15) Clindamycin Inj (Cleocin Inj) (09/27/17 01:00) Sodium Chlor 0.9% 1000 Ml Inj (Ns 1000 M (09/27/17 01:15) Ketorolac Inj (Toradol Inj) (09/27/17 01:30) Lidocai-Epi 1%-1:100,000 Inj (Xylocaine- (09/27/17 02:30) Labs Laboratory Tests Test 09/26/17 21:15 09/26/17 21:30 Urine Color YELLOW Urine Turbidity HAZY Urine pH 7.0 Urine Specific [place] 1.009 Urine Protein TRACE mg/dL Urine Glucose (UA) NEG mg/dL Urine Ketones NEG mg/dL Urine Occult Blood SMALL Urine Nitrite POS Urine Bilirubin NEG Urine Urobilinogen LESS THAN 2.0 MG/DL Urine Leukocyte Esterase NEG Urine RBC 3 /hpf Urine WBC 2 /hpf Urine Squamous Epithelial Cells 2 /hpf Urine Bacteria MANY /hpf Urine Mucus FEW /lpf Microscopic Urinalysis Comment CULTURE INDICATED White Blood Count 4.1 TH/MM3 Red Blood Count 4.79 MIL/MM3 Hemoglobin 12.9 GM/DL Hematocrit 38.4 % Mean Corpuscular Volume 80.2 FL Mean Corpuscular Hemoglobin 27.0 PG Mean Corpuscular Hemoglobin Concent 33.7 % Red Cell Distribution Width 15.7 % Platelet Count 285 TH/MM3 Mean Platelet Volume 6.5 FL Neutrophils (%) (Auto) 69.9 % Lymphocytes (%) (Auto) 22.9 % Monocytes (%) (Auto) 6.3 % Eosinophils (%) (Auto) 0.5 % Basophils (%) (Auto) 0.4 % Neutrophils # (Auto) 2.8 TH/MM3 Lymphocytes # (Auto) 0.9 TH/MM3 Monocytes # (Auto) 0.3 TH/MM3 Eosinophils # (Auto) 0.0 TH/MM3 Basophils # (Auto) 0.0 TH/MM3 CBC Comment DIFF FINAL Differential Comment Blood Urea Nitrogen 5 MG/DL Creatinine 0.72 MG/DL Random Glucose 100 MG/DL Total Protein 8.9 GM/DL Albumin 3.4 GM/DL Calcium Level 8.8 MG/DL Alkaline Phosphatase 82 U/L Aspartate Amino Transf (AST/SGOT) 19 U/L Alanine Aminotransferase (ALT/SGPT) 17 U/L Total Bilirubin 0.4 MG/DL Sodium Level 134 MEQ/L Potassium Level 3.5 MEQ/L Chloride Level 96 MEQ/L Carbon Dioxide Level 30.7 MEQ/L Anion Gap 7 MEQ/L Estimat Glomerular Filtration Rate 94 ML/MIN Lactic Acid Level 1.4 mmol/L MDM Medical Decision Making Medical Screen Exam Complete: Yes Emergency Medical Condition: Yes Medical Record Reviewed: Yes Differential Diagnosis Multiple abscesses, IV drug abuse Narrative Course Procedure: Abscess I&D, under strict sterile technique, localized anesthesia with lidocaine 1% with epinephrine 1 100,000 times 2 cc a local infiltrate, 11 blade scalpel superficial skin incision with copious purulence expressed. Iodoform packing. Patient tolerated well. Sterile dressing applied. Culture sent. Diagnosis Primary Impression: Abscess of left forearm Additional Impression: Abscess of right forearm Patient Instructions: Abscess (ED), General Instructions Additional Instructions: Localized wound care as discussed. Dressing change twice daily. Packing removal in 3 days. Clindamycin 300 mg 4 times daily for 10 days. Probiotics as discussed. Follow-up with your doctor/[facility]. Return promptly for worsening. Recommend drug rehabilitation clinic. Use clean needles. Scripts Clindamycin (Clindamycin) 300 Mg Cap 300 MG PO Q6H for Infection, #40 CAP 0 Refills Prov: Jarrell Grossman MD 09/27/17 Disposition: DISCHARGE HOME Condition: Stable Jarrell Grossman MD Sep 27, 2017 02:59
== END 2017-09-27 03:00 | disposition home or self-care (01) ==
LOC: NEPE 21:01
DX: L02.414 Cutaneous abscess of left upper limb (principal); B95.62 Methicillin resistant Staphylococcus aureus infection as the cause of diseases classified elsewhere; L02.413 Cutaneous abscess of right upper limb; N39.0 Urinary tract infection, site not specified; B96.20 Unspecified Escherichia coli [E. coli] as the cause of diseases classified elsewhere; Z16.29 Resistance to other single specified antibiotic; Z16.11 Resistance to penicillins; Z16.19 Resistance to other specified beta lactam antibiotics
CPT/HCPCS: 10061; 80053; 81001; 83605; 84703; 85025; 86403; 87070; 87077; 87086; 87186; 96365; 96375; 99284; J1885; J7030

== ENCOUNTER 2017-10-19 08:04 | Emergency (ER) | payer MEDICAID ==
[~2017-10-19] VITALS: Ht 162.6 cm; Wt 57.0 kg
[~2017-10-19 08:04] MED LIST changes: +CLIN300C5 PO
[2017-10-19 08:13] VITALS: BP 144/74; PULSE 91; RESP 16; TEMP 98.1; O2SAT 100
--- NOTE | 2017-10-19 08:56 | PD ---
HPI Chief Complaint: Skin Problem Time Seen by Provider: 08:44 Travel History International Travel<30 days: No Contact w/Intl Traveler<30days: No Traveled to known affect area: No History of Present Illness HPI 31-year-old female with history of IV drug use, heroin abuse, several skin abscesses, here because of an abscess to her right arm which had been draining yesterday but now is getting more red hot and swollen. She denies any fevers or other issues. Modifying Factors: None Associated Signs & Symptoms: Right arm skin abscess Risk Factors: IV drug use previous abscess PFSH Past Medical History Hx Anticoagulant Therapy: No ADHD: Yes Arthritis: No Asthma: Yes Blood Disorders: No Bipolar Disorder: Yes Anxiety: No Depression: No Heart Rhythm Problems: No Cancer: No Cardiovascular Problems: No High Cholesterol: No Chemotherapy: No Chest Pain: No Congestive Heart Failure: No COPD: No Cerebrovascular Accident: No Diabetes: No Diminished Hearing: No Endocrine: No Gastrointestinal Disorders: Yes (gas problems in past, abdominal pain now) GERD: Yes Genitourinary: Yes (vaginal infection right now as per report) Headaches: Yes (Tension) Hepatitis: Yes (C) Immune Disorder: No Musculoskeletal: No Neurologic: Yes (abdominal pains right now) Psychiatric: No Reproductive: No Respiratory: No Integumentary: Yes (abscess left arm) Migraines: Yes Pneumonia: Yes Radiation Therapy: No Seizures: Yes Sleep Apnea: No Thyroid Disease: No Tetanus Vaccination: > 5 Years Influenza Vaccination: No ?: Unknown LMP: 08/21/17 : 2 Para: 1 Miscarriage: 1 : 2 Ovarian Cysts: Yes (Lt. ovarian cyst ruptured ) Dilation and Curettage (D&C): Yes Past Surgical History Abdominal Surgery: No Cardiac Surgery: No Ear Surgery: No Endocrine Surgery: No Eye Surgery: No Genitourinary Surgery: No Gynecologic Surgery: Yes Hysterectomy: No Neurologic Surgery: No Oral Surgery: No Thoracic Surgery: No Other Surgery: Yes (I and D history) Family History Family Hypercholesterolemia: Yes Social History Alcohol Use: No Tobacco Use: Yes (1/2 pack per day) Substance Use: Yes (IV HEROIN) Allergies-Medications (Allergen,Severity, Reaction): Coded Allergies: No Known Allergies (Verified Allergy, Unknown, 10/19/17) Reported Meds & Prescriptions Reported Meds & Active Scripts Active Proventil Hfa 6.7 GM Inh (Albuterol Sulfate) 90 Mcg/Act Aer 2 Puff INH Q4-6H PRN Review of Systems Except as stated in HPI: all other systems reviewed are Neg Physical Exam Narrative GENERAL: Well-developed young female patient currently and mild distress. Awake and oriented 3. SKIN: Focused skin assessment warm/dry. There is a notable right forearm area of erythema tracking up to the antecubital area, very edematous and fluctuant. No palpable pulsatile mass. She has notable erythematous nodules and track maya on the other arm as well. HEAD: Atraumatic. Normocephalic. EYES: Pupils equal and round. No scleral icterus. No injection or drainage. ENT: No nasal bleeding or discharge. Mucous membranes pink and moist. NECK: Trachea midline. No JVD. CARDIOVASCULAR: Regular rate and rhythm. No murmur appreciated. RESPIRATORY: No accessory muscle use. Clear to auscultation. Breath sounds equal bilaterally. GASTROINTESTINAL: Abdomen soft, non-tender, nondistended. Hepatic and splenic margins not palpable. MUSCULOSKELETAL: No obvious deformities. No clubbing. No cyanosis. No edema. NEUROLOGICAL: Awake and alert. No obvious cranial nerve deficits. Motor grossly within normal limits. Normal speech. PSYCHIATRIC: Appropriate mood and affect; insight and judgment normal. Data Data Last Documented VS Vital Signs Date Time Temp Pulse Resp B/P (MAP) Pulse Ox O2 Delivery O2 Flow Rate FiO2 10/19/17 08:25 74 18 10/19/17 08:13 98.1 144/74 (97) 100 Orders Orders Sepsis Workup Initiated (10/19/17 ) Complete Blood Count With Diff (10/19/17 08:47) Comprehensive Metabolic Panel (10/19/17 08:47) Lactic Acid Sepsis Protocol (10/19/17 08:47) Blood Culture (10/19/17 08:47) Blood Glucose (10/19/17 08:47) Ecg Monitoring (10/19/17 08:47) Iv Access Insert/Monitor (10/19/17 08:47) Oximetry (10/19/17 08:47) Oxygen Administration (10/19/17 08:47) Vascular Access Team Consult/P PRN (10/19/17 08:47) Vascular Poc Ultrasound (10/19/17 ) Lidocaine 1% Inj (50 Ml) (Xylocaine 1% I (10/19/17 09:45) Lidocaine Pf 1% Inj (Xylocaine-Mpf 1% In (10/19/17 09:49) Blood Culture (10/19/17 10:38) [facility] Information ([facility] (10/19/17 10:45) Dalbavancin Inj (Dalvance Inj) (10/19/17 10:38) Wound Culture And Gram Stain (10/19/17 10:56) Labs Laboratory Tests Test 10/19/17 08:50 White Blood Count 8.3 TH/MM3 Red Blood Count 4.52 MIL/MM3 Hemoglobin 12.0 GM/DL Hematocrit 36.5 % Mean Corpuscular Volume 80.6 FL Mean Corpuscular Hemoglobin 26.6 PG Mean Corpuscular Hemoglobin Concent 33.1 % Red Cell Distribution Width 16.9 % Platelet Count 326 TH/MM3 Mean Platelet Volume 6.5 FL Neutrophils (%) (Auto) 68.8 % Lymphocytes (%) (Auto) 21.9 % Monocytes (%) (Auto) 7.0 % Eosinophils (%) (Auto) 1.7 % Basophils (%) (Auto) 0.6 % Neutrophils # (Auto) 5.7 TH/MM3 Lymphocytes # (Auto) 1.8 TH/MM3 Monocytes # (Auto) 0.6 TH/MM3 Eosinophils # (Auto) 0.1 TH/MM3 Basophils # (Auto) 0.1 TH/MM3 CBC Comment DIFF FINAL Differential Comment Blood Urea Nitrogen 8 MG/DL Creatinine 0.62 MG/DL Random Glucose 82 MG/DL Total Protein 7.6 GM/DL Albumin 3.1 GM/DL Calcium Level 8.4 MG/DL Alkaline Phosphatase 77 U/L Aspartate Amino Transf (AST/SGOT) 21 U/L Alanine Aminotransferase (ALT/SGPT) 21 U/L Total Bilirubin 0.3 MG/DL Sodium Level 136 MEQ/L Potassium Level 3.9 MEQ/L Chloride Level 102 MEQ/L Carbon Dioxide Level 27.9 MEQ/L Anion Gap 6 MEQ/L Estimat Glomerular Filtration Rate 112 ML/MIN Lactic Acid Level 1.3 mmol/L MDM Medical Decision Making Medical Screen Exam Complete: Yes Emergency Medical Condition: Yes Medical Record Reviewed: Yes Interpretation(s) Laboratory Tests Test 10/19/17 08:50 Mean Corpuscular Hemoglobin 26.6 PG (27.0-34.0) Mean Platelet Volume 6.5 FL (7.0-11.0) Albumin 3.1 GM/DL (3.4-5.0) Calcium Level 8.4 MG/DL (8.5-10.1) Differential Diagnosis Right forearm abscess/cellulitis Narrative Course Cultures were sent after I&D of the abscess and wound care instructions were given. Patient has significant cellulitis running upper arm as well. IV antibiotic Delvance was ordered for the patient. Planning to release with return in 2 days for packing removal and wound check. Return for any worsening in pain, fevers, and as needed. The plan has been discussed with her and she states understanding. Procedures Procedure Narrative INCISION AND DRAINAGE OF ABSCESS: The area was prepped and was sterilely draped. A subcutaneous wheal of % Xylocaine 1 with a total number 5 mL was used to anesthetize the area. The area was properly anesthetized. A number 11 scalpel was used to make a 1 -cm incision across the area of the abscess. Cultures were obtained. The abscess was drained an irrigated with normal saline. Quarter inch iodoform packing was placed in the wound. Sterile dressing applied. Patient advised to have packing removed in two days. Diagnosis Primary Impression: Abscess of right forearm Additional Impression: Right forearm cellulitis Disposition: DISCHARGE HOME Condition: Stable Mikhail Garza MD Oct 19, 2017 08:56
[2017-10-19 09:04] LABS: AUTOMATED NEUTROPHIL # 5.7 TH/MM3 (1.8-7.7); BASOPHIL # 0.1 TH/MM3 (0-0.2); BASOPHIL % 0.6 % (0.0-2.0); EOSINOPHIL # 0.1 TH/MM3 (0-0.4); EOSINOPHIL % 1.7 % (0.0-4.0); HEMATOCRIT 36.5 % (35.0-46.0); LYMPH % 21.9 % (9.0-44.0); LYMPHOCYTE # 1.8 TH/MM3 (1.0-4.8); MEAN CELL VOLUME 80.6 FL (80.0-100.0); MEAN CORPUSCULAR HEMOGLOBIN 26.6 PG (27.0-34.0); MEAN CORPUSCULAR HGB CONC 33.1 % (32.0-36.0); MEAN PLATELET VOLUME 6.5 FL (7.0-11.0); MONOCYTE # 0.6 TH/MM3 (0-0.9); NEUT % 68.8 % (16.0-70.0); PLATELET COUNT 326 TH/MM3 (150-450); RED BLOOD COUNT 4.52 MIL/MM3 (4.00-5.30); RED CELL DISTRIBUTION WIDTH 16.9 % (11.6-17.2); WHITE BLOOD COUNT 8.3 TH/MM3 (4.0-11.0)
[2017-10-19 09:18] LABS: ALT (GPT) 21 U/L (10-53)
[2017-10-19 09:21] LABS: ALKALINE PHOSPHATASE 77 U/L (45-117); TOTAL BILIRUBIN ADULT 0.3 MG/DL (0.2-1.0); TOTAL PROTEIN 7.6 GM/DL (6.4-8.2)
[2017-10-19 09:30] LABS: ALBUMIN 3.1 GM/DL (3.4-5.0); BICARBONATE 27.9 MEQ/L (21.0-32.0); BLOOD UREA NITROGEN 8 MG/DL (7-18); CALCIUM 8.4 MG/DL (8.5-10.1); CHLORIDE 102 MEQ/L (98-107); CREATININE 0.62 MG/DL (0.50-1.00); GLOMERULAR FILTRATION RATE 112 ML/MIN (>89); GLUCOSE,RANDOM 82 MG/DL (74-106); SODIUM (NA) 136 MEQ/L (136-145)
[2017-10-19 09:31] LABS: AST (GOT) 21 U/L (15-37)
[2017-10-19] MEDS ORDERED: LIDOCAINE HCL 1% 50 ML VIAL INFIL ONE (09:45)
[2017-10-19] MEDS ORDERED: LIDOCAINE HCL 1% PF 30 ML VIAL ONE (09:49)
[2017-10-19] MEDS ORDERED: DALBAVANCIN INJ 1,500 MG in DEXTROSE 5% IN WATE 500 ML INJ 500 ML IV STA ×2 (10:38)
[2017-10-19] MEDS ORDERED: MISCELLANEOUS PHARMACY INFORMATION XX ONE (10:45)
[2017-10-19 12:49] VITALS: BP 117/70; PULSE 97; RESP 16; O2SAT 99
== END 2017-10-19 14:47 | disposition home or self-care (01) ==
LOC: NEPE 08:04
DX: L02.413 Cutaneous abscess of right upper limb (principal); L03.113 Cellulitis of right upper limb; B95.62 Methicillin resistant Staphylococcus aureus infection as the cause of diseases classified elsewhere; F11.10 Opioid abuse, uncomplicated; F90.9 Attention-deficit hyperactivity disorder, unspecified type; J45.909 Unspecified asthma, uncomplicated; F31.9 Bipolar disorder, unspecified; B19.20 Unspecified viral hepatitis C without hepatic coma; F17.200 Nicotine dependence, unspecified, uncomplicated
CPT/HCPCS: 10061; 80053; 83605; 85025; 87040; 87070; 87077; 87186; 96365; 99284; J0875; J7060

== ENCOUNTER 2017-12-28 18:41 | Emergency (ER) | payer SELFPAY ==
[~2017-12-28] VITALS: Ht 162.6 cm; Wt 58.0 kg
[~2017-12-28 18:41] MED LIST changes: -BACT800T5 PO; -CLIN150 PO; -CLIN300C5 PO
[2017-12-28 19:16] VITALS: BP 133/74; PULSE 98; RESP 18; TEMP 99.3; O2SAT 100
--- NOTE | 2017-12-28 19:44 | PD ---
HPI Chief Complaint: Skin Problem Time Seen by Provider: 19:38 Travel History International Travel<30 days: No Contact w/Intl Traveler<30days: No Traveled to known affect area: No History of Present Illness HPI 32-year-old female presents to the emergency department for evaluation of abscess to her left forearm. Patient states this started 4 days ago. She states she has some drainage today, but it stopped draining and she still has fluctuance. Patient reports history of multiple abscesses in the past. She does use IV heroin. She denies any fevers or chills. Patient is unsure she could be . She reports history of hepatitis C. She is not currently on any prescribed medications. Current pain is 4/10, aching and throbbing. Moderate severity. PFSH Past Medical History Hx Anticoagulant Therapy: No ADHD: Yes Arthritis: No Asthma: Yes Blood Disorders: No Bipolar Disorder: Yes Anxiety: No Depression: No Heart Rhythm Problems: No Cancer: No Cardiovascular Problems: No High Cholesterol: No Chemotherapy: No Chest Pain: No Congestive Heart Failure: No COPD: No Cerebrovascular Accident: No Diabetes: No Diminished Hearing: No Endocrine: No Gastrointestinal Disorders: Yes (gas problems in past, abdominal pain now) GERD: Yes Genitourinary: Yes (vaginal infection right now as per report) Headaches: Yes (Tension) Hepatitis: Yes (C) Immune Disorder: No Musculoskeletal: No Neurologic: Yes (abdominal pains right now) Psychiatric: No Reproductive: No Respiratory: No Integumentary: Yes (abscess left arm) Migraines: Yes Pneumonia: Yes Radiation Therapy: No Seizures: Yes Sleep Apnea: No Thyroid Disease: No : 2 Para: 1 Miscarriage: 1 : 2 Ovarian Cysts: Yes (Lt. ovarian cyst ruptured ) Dilation and Curettage (D&C): Yes Past Surgical History Abdominal Surgery: No Cardiac Surgery: No Ear Surgery: No Endocrine Surgery: No Eye Surgery: No Genitourinary Surgery: No Gynecologic Surgery: Yes Hysterectomy: No Neurologic Surgery: No Oral Surgery: No Thoracic Surgery: No Other Surgery: Yes (I and D history) Family History Family Hypercholesterolemia: Yes Social History Alcohol Use: No Tobacco Use: Yes (1/2 pack per day) Substance Use: Yes (IV HEROIN) Allergies-Medications (Allergen,Severity, Reaction): Coded Allergies: No Known Allergies (Verified Allergy, Unknown, 12/28/17) Reported Meds & Prescriptions Reported Meds & Active Scripts Active Proventil Hfa 6.7 GM Inh (Albuterol Sulfate) 90 Mcg/Act Aer 2 Puff INH Q4-6H PRN Review of Systems Except as stated in HPI: all other systems reviewed are Neg Physical Exam Narrative GENERAL: Well-nourished, well-developed female patient, ambulatory. Afebrile. SKIN: Focused skin assessment warm/dry. Patient has 2 abscesses to left forearm. One is smaller measures approximately 3 cm. The other one is larger and measures approximately 6 cm. Both are fluctuant with surrounding erythema. HEAD: Normocephalic. EYES: No scleral icterus. No injection or drainage. NECK: Supple, trachea midline. No JVD or lymphadenopathy. CARDIOVASCULAR: Regular rate and rhythm without murmurs, gallops, or rubs. Left radial pulses 2+. RESPIRATORY: Breath sounds equal bilaterally. No accessory muscle use. Lung sounds are clear to auscultation. GASTROINTESTINAL: Abdomen soft, non-tender, nondistended. MUSCULOSKELETAL: No cyanosis, or edema. BACK: Nontender without obvious deformity. No CVA tenderness. Data Data Last Documented VS Vital Signs Date Time Temp Pulse Resp B/P (MAP) Pulse Ox O2 Delivery O2 Flow Rate FiO2 12/28/17 19:16 99.3 98 18 133/74 (93) 100 Orders Orders Wound Culture And Gram Stain (12/28/17 19:43) Lidocaine 1% Inj (50 Ml) (Xylocaine 1% I (12/28/17 19:45) Ed Urine Pregnancytest Poc (12/28/17 19:43) Lidocaine Pf 1% Inj (Xylocaine-Mpf 1% In (12/28/17 19:48) Sulfamet-Trimeth Ds 800-160 Mg (Bactrim (12/28/17 20:15) Cephalexin (Keflex) (12/28/17 20:15) MDM Medical Decision Making Medical Screen Exam Complete: Yes Emergency Medical Condition: Yes Medical Record Reviewed: Yes Differential Diagnosis Abscess versus cellulitis versus sepsis versus IVDU Narrative Course 32-year-old female presents to the emergency department for evaluation abscess to her left forearm. On exam, she has 2 separate abscesses. She gives verbal consent for incision and drainage. Urine test is ordered and pending. Urine test is negative. Patient will be started on Bactrim and Keflex. She is given her first dose in the emergency department. She is instructed on proper wound care. Patient will be discharged with a prescription for Bactrim and Keflex. The patient was discharged in stable condition with instructions, including return instructions and follow up instructions. Procedures Procedure Narrative INCISION AND DRAINAGE OF ABSCESS: The area was prepped and was sterilely draped. A subcutaneous wheal of 1% Xylocaine with a total number 4 mL was used to anesthetize the area. The area was properly anesthetized. A number 11 scalpel was used to make a 1 -cm incision across the area of the abscess. Cultures were obtained. The abscess was drained an irrigated with normal saline. Quarter inch iodoform packing was placed in the wound. Sterile dressing applied. Patient advised to have packing removed in two days. INCISION AND DRAINAGE OF ABSCESS: The area was prepped and was sterilely draped. A subcutaneous wheal of 1% Xylocaine with a total number 4 mL was used to anesthetize the area. The area was properly anesthetized. A number 11 scalpel was used to make a 1 -cm incision across the area of the abscess. Cultures were obtained. The abscess was drained an irrigated with normal saline. Quarter inch iodoform packing was placed in the wound. Sterile dressing applied. Patient advised to have packing removed in two days. Diagnosis Primary Impression: Abscess of left arm Referrals: [facility] call for appointment [facility] Patient Instructions: Abscess (ED), Abscess Incision and Drainage (DC), General Instructions Additional Instructions: Follow-up with [facility] for detox. Take antibiotics as directed until gone. Bactrim is free at [facility]. Keflex is $4 at [facility]. Take ibuprofen as directed as needed with food for pain. Clean twice daily with soap and water and apply [id number] antibiotic ointment. Warm, moist compresses. Return in 48 hours for packing removal and recheck. Return to the emergency department sooner for any acute worsening of symptoms. Med/Other Pt SpecificInfo: Prescription(s) given Scripts Ibuprofen (Ibuprofen) 600 Mg Tab 600 MG PO TID Y for PAIN SCALE 1 TO 10, #21 TAB 0 Refills Prov: Chanel Kemp 12/28/17 Cephalexin (Keflex) 500 Mg Capsule 500 MG PO Q6H for Infection for 10 Days, #40 CAP 0 Refills Prov: Chanel Kemp 12/28/17 Sulfamethoxazole-Trimethoprim (Bactrim DS) 800-160 Mg Tab 1 TAB PO BID for Infection, #20 TAB 0 Refills Prov: Chanel Kemp 12/28/17 Disposition: 01 DISCHARGE HOME Condition: Stable Chanel Kemp December 28, 2017 19:44
[2017-12-28] MEDS ORDERED: LIDOCAINE HCL 1% 50 ML VIAL INFIL ONE (19:45)
[2017-12-28] MEDS ORDERED: LIDOCAINE HCL 1% PF 30 ML VIAL ONE (19:48)
[2017-12-28] MEDS ORDERED: CEPH-460 PO (20:14)
[2017-12-28] MEDS ORDERED: IBUP-232 PO (20:14)
[2017-12-28] MEDS ORDERED: BACT800T5 PO (20:14)
[2017-12-28] MEDS ORDERED: SULFAMETHOXAZOLE-TRIMETHOPRIM DS 800-160 MG TAB PO ONE (20:15)
[2017-12-28] MEDS ORDERED: CEPHALEXIN MONOHYDRATE 500 MG CAP PO ONE (20:15)
== END 2017-12-28 20:25 | disposition home or self-care (01) ==
LOC: NEPK 18:41
DX: L02.414 Cutaneous abscess of left upper limb (principal); A49.02 Methicillin resistant Staphylococcus aureus infection, unspecified site; F11.90 Opioid use, unspecified, uncomplicated; F17.200 Nicotine dependence, unspecified, uncomplicated; F31.9 Bipolar disorder, unspecified; K21.9 Gastro-esophageal reflux disease without esophagitis; J45.909 Unspecified asthma, uncomplicated; F90.9 Attention-deficit hyperactivity disorder, unspecified type; Z86.69 Personal history of other diseases of the nervous system and sense organs
CPT/HCPCS: 10061; 84703; 86403; 87070; 87077; 87185; 87186; 87205